=== PATIENT | female | born 1960 | race Caucasian/White ===

== ENCOUNTER 2023-09-28 10:06 | Outpatient (CLI) | payer BC, SELFPAY ==
[2023-09-28 18:10] LABS: Hematocrit 47.3 % (37.0-47.0); Hemoglobin 15.1 g/dL (12.0-15.0); Mean Corpuscular HGB Conc 31.9 g/dl (32-36); Mean Corpuscular Hemoglobin 28.2 pg (26-34); Mean Corpuscular Volume 88.4 fl (80-100); Platelet Count Result 238 k/mm3 (150-375); Red Blood Count 5.35 M/mm3 (4.2-5.4); Red Cell Distribution Width 14.1 % (11.5-14.5); White Blood Count 6.3 K/mm3 (4.5-10.0)
[2023-09-28 18:23] LABS: Alanine Aminotransferase 28 U/L (6-35); Albumin Level 4.6 g/dL (3.5-5.1); Alkaline Phosphatase 88 U/L (38-126); Anion Gap 4 mmol/L (4-12); Aspartate Amino Transferase 66 U/L (14-36); Bilirubin,Total 1.3 mg/dL (0.2-1.3); Blood Urea Nitrogen 8 mg/dL (7-17); Calcium 10.2 mg/dL (8.4-10.2); Carbon Dioxide 31 mmol/L (22-30); Chloride 102 mmol/L (98-107); Cholesterol 171 mg/dL (0-200); Estimated Glomerular Filt Rate > 60; Glucose 97 mg/dL (65-110); HDL Direct 59 mg/dL; Potassium 4.1 mmol/L (3.4-5.0); Sodium 137 mmol/L (137-145); Triglycerides 157 mg/dL (<150)
[2023-09-28 18:43] LABS: LDL Cholesterol Direct 83 mg/dL
[2023-09-28 19:37] LABS: Folic Acid > 20.0 ng/mL (2.76->20)
[2023-09-28 20:38] LABS: Vitamin D 25 Hydroxy 35.1 ng/mL
[2023-09-29 00:17] LABS: Hemoglobin A1C 5.3 % (<5.7)
== END 2023-09-28 10:07 | disposition home or self-care (01) ==
LOC: ANHBWCLAB 10:08
PROVIDERS: PCP Nurse Practitioner Adult Health; Visit Provider Nurse Practitioner Adult Health
DX: E55.9 Vitamin D deficiency, unspecified (principal); R53.83 Other fatigue; E66.9 Obesity, unspecified; Z13.9 Encounter for screening, unspecified; H91.90 Unspecified hearing loss, unspecified ear
CPT/HCPCS: 36415; 80053; 80061; 82306; 82607; 82746; 83036; 84443; 85027

== ENCOUNTER 2024-04-01 11:31 | Outpatient (CLI) | payer BC, SELFPAY ==
[2024-04-01 18:56] LABS: Alanine Aminotransferase 25 U/L (6-35); Albumin Level 4.3 g/dL (3.5-5.1); Alkaline Phosphatase 74 U/L (38-126); Anion Gap 8 mmol/L (4-12); Aspartate Amino Transferase 50 U/L (14-36); Blood Urea Nitrogen 13 mg/dL (7-17); Carbon Dioxide 30 mmol/L (22-30); Chloride 102 mmol/L (98-107); Cholesterol 176 mg/dL (0-200); Estimated Glomerular Filt Rate > 60; Glucose 91 mg/dL (65-110); HDL Direct 61 mg/dL; Potassium 3.9 mmol/L (3.4-5.0); Sodium 140 mmol/L (137-145); Triglycerides 147 mg/dL (<150)
[2024-04-01 19:06] LABS: LDL Cholesterol Direct 72 mg/dL
[2024-04-01 22:00] LABS: Vitamin D 25 Hydroxy 42.2 ng/mL
== END 2024-04-01 11:32 | disposition home or self-care (01) ==
PROVIDERS: PCP Nurse Practitioner Adult Health; Visit Provider Nurse Practitioner Adult Health
DX: E78.5 Hyperlipidemia, unspecified (principal); E55.9 Vitamin D deficiency, unspecified
CPT/HCPCS: 36415; 80053; 80061; 82306

== ENCOUNTER 2024-12-03 10:23 | Outpatient (CLI) | payer BC, SELFPAY ==
--- NOTE | ~2024-12-03 | MM_ITS ---
EXAMINATION: MM screening rosalia BI w víctor HISTORY: Screening TECHNIQUE: Craniocaudal and mediolateral oblique 3-D tomosynthesis images were obtained and synthetic 2-D images were generated. CAD analysis was submitted and interpreted. COMPARISON: No prior mammogram is available for comparison at this institution. BREAST PARENCHYMAL COMPOSITION: Not dense: There are scattered areas of fibroglandular density. FINDINGS: There is a focal asymmetry in the upper inner quadrant of the left breast, anterior third. There is no mammographic evidence for malignancy in the right breast. IMPRESSION: 1. Left breast asymmetry. 2. Recommend comparison to outside mammograms. BI-RADS Category 0: Incomplete: Needs additional imaging evaluation. Reviewed, dictated and finalized at location B.
--- OUTSIDE RECORDS SUMMARY | 2024-12-03 11:27 | XMS_ITS | Continuity of Care Document ---
Author Organization [facility] Address [address] [place] [address] Phone Care Team Providers Care Map Clerk Name Role Phone Kahlil Null Unavailable Unavailable Advance Directives Directive Yes / No Effective Date File Name No Information Encounters Encounter Description Practice Location Reason(s) For Visit Diagnoses Date Provider Providers Copied on Encounter [facility], [id number] [place] [address] [address], [place], [place], [id number], [place] tel:[phone] SEC [facility] No Information Aug-0 6-200 1 Chaka Edandrea. [address] , [address], [place], [address], [place]. tel:[phone] Family History Family Member Type Diagnosis Age At Onset No Information Payers Payer name Insurance type Covered democrat ID Authoriza tion(s) No Information Social History Type Description Quantity Date Captured Comments Sex Female Smoking Status No Information Chief Complaint And Reason For Visit No Information Reason For Referral Reason For Referral No Information History Of Present Illness Encounter Date Complaint History Of Prese nt Illness No Information Functional Status Date Functional Assessmen t No Information Instructions Date Instruction Additional Infor mation No Information Assessments Type Assessment Date No Information Patient Care Teams Name Effective Dates (start - stop) Status Members No Information
--- OUTSIDE RECORDS SUMMARY | 2024-12-03 11:27 | XMS_ITS | Clinical Summary ---
Author Organization [facility] Address [facility] [place] [address] Care Team Providers Care Vacuum Tank Tender Name Role Phone Jovanny Cobos MD Unavailable Nancy Bassett NP Primary Care Provider [phone] Yris Gamino Unavailable [phone] Allergies No known active allergies Medications metoprolol XL (TOPROL-XL) 50 mg 24 hr tablet Take 1 tablet (50 mg total) by mouth daily Active dextroamphetamin e-amphetamine XR (ADDERALL XR) 30 mg 24 hr capsule Take 1 capsule (30 mg total) by mouth every morning Active FLUoxetine (PROzac) 20 mg capsule Take 1 capsule (20 mg total) by mouth daily Active fluticasone propion-salmeter oL (ADVAIR DISKUS) 250-50 mcg/dose diskus inhaler Inhale 1 puff daily Rinse mouth with water after use. Do not swallow. Active fluticasone propionate (FLONASE) 50 mcg/actuation nasal spray Administer 1 spray into each nostril daily Active albuterol HFA (PROVENTIL HFA,VENTOLIN HFA,PROAIR HFA) 90 mcg/actuation inhaler Inhale 2 puffs as needed 3 Active cetirizine (ZyrTEC) 10 mg chewable tablet Take 1 tablet (10 mg total) by mouth daily Active calcium carbonate-vitami n D3 1,500 mg (600 mg elemental)-1,000 unit capsule Take 1 capsule by mouth daily Active multivitamin tabletIndication s:Vitamin Deficiency Prevention Take 1 tablet by mouth daily Active UNABLE TO FIND Take 1 each by mouth daily Med Name: SAMe (Tosylate Disulfate) 400mg Active menthol (Gold Milton Original Strength) 0.15 % powder Apply 1 Application topically daily Active cyclobenzaprine (FLEXERIL) 10 mg tabletIndication s:Aftercare following left knee joint replacement surgery Take 1 tablet (10 mg total) by mouth every 8 (eight) hours as needed for muscle spasms 30 tablet 4 Active lidocaine 5 % creamIndications :S/P total knee arthroplasty, left,Nerve pain Apply cream to left knee twice daily avoiding incision for pain 28 g 4 Active cephalexin (KEFLEX) 500 mg capsuleIndicatio ns:Prophylaxis, Medical Take 1 capsule twice daily the day before, day of and day after all dental visits 6 capsule 2 5 Active Active Problems Problem Noted Date Diagnosed Date Arthritis of left knee 11/21/2023 Aftercare following left knee joint replacement surgery 11/21/2023 Primary osteoarthritis of both knees 01/09/2023 Primary osteoarthritis of left knee 10/22/2018 Assessment & Plan (10/22/2018 3:28 PM CDT): Patient has responded well to injection therapies in the past see procedure note Surgical History Surgery Date Site/Laterality Comments EYE SURGERY 06/26/1969 - 06/25/1970 Bilateral crossed eye OOPHERECTOMY 06/26/1989 - 06/25/1990 Left FOOT FRACTURE SURGERY 06/26/2019 - 06/25/2020 Right Taty Franc fx CARDIAC ELECTROPHYSIOLOGY MA PPING AND ABLATION 06/26/2016 - 06/25/2017 N/A A fib and SVT Medical History Medical History Date Comments Atrial fibrillation (HCC) SVT (supraventricular tachycardia) Elevated cholesterol Depression GERD (gastroesophageal reflux disease) ADHD (attention deficit hype ractivity disorder) Asthma Hiatal hernia HL (hearing loss) Bilateral - he aring aids, better in left Family History Medical History Relation Name Comments Arthritis Other Cancer Other Heart disease Other Hypertension Other Relation Name Status Comments Other Social History Tobacco Use Types Packs/Day Years Used Date Smoking Tobacco: Never Tobacco Cessation:Counseling Given: Not Answered [facility] Utilities Answer Date Recorded In the past 12 months has th e electric, gas, oil, or water company threatened to shut off services in your home? No 11/22/2023 Social Connection and Isolat ion Panel [NHANES] Answer Date Recorded In a typical week, how many times do you talk on the phone with family, friends, or neighbors? More than three times a week 11/22/2023 How often do you get togethe r with friends or relatives? More than three times a week 11/22/2023 How often do you attend chur ch or zoroastrianism services? More than 4 times per year 11/22/2023 Do you belong to any clubs o r organizations such as religious groups, unions, fraternal or athletic groups, or school groups? No 11/22/2023 How often do you attend meet ings of the clubs or organizations you belong to? Never 11/22/2023 Are you , , di vorced, , never , or living with a partner? 11/22/2023 AUDIT-C Answer Date Recorded Q1: How often do you have a drink containing alcohol? Never 11/07/2023 Q2: How many drinks containi ng alcohol do you have on a typical day when you are drinking? Patient does not drink Q3: How often do you have si x or more drinks on one occasion? Never 11/07/2023 Overall Financial Resource Strain (CARDIA) Answe r Date Recorded How hard is it for you to pa y for the very basics like food, housing, medical care, and heating? Not hard at all 11/22/2023 Hunger Vital Sign Answer Date Recorded Within the past 12 months, y ou worried that your food would run out before you got the money to buy more. Never true 11/22/19 24 Within the past 12 months, t he food you bought just didn't last and you didn't have money to get more. Never true 11/22/2023 PRAPARE - Transportation Answer Date Re corded In the past 12 months, has l ack of transportation kept you from medical appointments or from getting medications? No 10/25 In the past 12 months, has l ack of transportation kept you from meetings, work, or from getting things needed for daily living? No 11/22/2023 Housing Stability Vital Sign Answer Marquis e Recorded In the last 12 months, was t here a time when you were not able to pay the mortgage or rent on time? No 11/22/2023 In the past 12 months, how m any times have you moved where you were living? 1 11/22/2023 At any time in the past 12 m [facility], were you homeless or living in a nursing home (including now)? No 11/22/2023 Personal Safety Answer Date Recorded Have you ever been in or are you currently in a harmful physical or emotional relationship or is someone making you feel afraid or unsafe? 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 Gender Identity Not on file Sexual Orientation Not on file Obstetrics History Last Filed Vital Signs Vital Sign Reading Time Taken Comments Blood Pressure 151/81 11/22/2023 11:15 AM CDT Pulse 66 11/22/2023 11:15 AM CDT Temperature 36.8 C (98.2 F) 11/22/2023 11:15 AM CDT Respiratory Rate 18 11/22/2023 11:15 AM CDT Oxygen Saturation 95% 11/22/2023 11:15 AM CDT Inhaled Oxygen Concentration - - Weight 100.7 kg (222 lb) 01/31/2024 1:37 PM CDT Height 170.2 cm (5' 7.01) 01/31/2024 1:37 PM CD T Body Mass Index 34.76 01/31/2024 1:37 PM CDT Plan of Treatment Health Maintenance Due Date Last Done Comments Breast Cancer Screening-Mammogram 1960 Cervical Cancer Screening 1960 Colon Cancer Screening-Colonoscopy 1960 Depression Screening 1960 Hepatitis C Screening 1960 DTaP/Tdap/Td Vaccine (1 - Tdap) 1971 Hepatitis B Screening 1978 Regular Well Visit/Exam 18-64 1978 Zoster Vaccine (1 of 2) 2010 Influenza Vaccine (Season Ended) 2025 Pneumococcal vaccine <65 Aged Out No longer eligible based on patient's age to complete this topic Medical Devices Implanted Type Area Machine Stone Polisher Apprentice Device Identifier Shelf Expiration Date Model / Serial / Lot Screw Screw Right: Foot [employer] Simplex P Radiopaque Full Dose Cement Bone Sterile 6191-1-010 - [id number] - [id number] Implanted:Qty: 1 on 11/21/2023 by Alcides Mancilla MD at [facility] Left: Knee [employer] 10/23/2025 6191-1-010 / [id number] / [id number] [employer]/Or tho Cmpnt Patellar Std 29mm Resurfacing Round Journey [id number] - [id number] Implanted:Qty: 1 on 11/21/2023 by Alcides Mancilla MD at [facility] Left: Knee [employer] [id number] 07/30/2033 [id number] / / [id number] [employer]Or tho Journey Ii 9mm Bicruciate Stabilized Left 3-4 Insert Articular [id number] - [id number] Implanted:Qty: 1 on 11/21/2023 by Alcides Mancilla MD at [facility] Left: Knee [employer] [id number] 07/03/2033 [id number] / / [id number] [employer]Or tho Journey Bicruciate Stabilize Knee Left 4 Baseplate Tibial [id number] - [id number] Implanted:Qty: 1 on 11/21/2023 by Alcides Mancilla MD at [facility] Left: Knee [employer] [id number] 07/15/2033 [id number] / / [id number] [employer] Journey Ii 67.5x62.7mm Bicruciate Stabilize Knee Left 5 Component [id number] - [id number] Implanted:Qty: 1 on 11/21/2023 by Alcides Mancilla MD at [facility] Left: Knee [employer] [id number] 07/03/2033 [id number] Insurance [employer] O[employer] Advance Directives For more information, please contact: [phone] * Full Code (Latest Code Status on File) Date Activated Date Inactivated Comments 11/21/2023 10:33 AM 11/22/2023 5:56 PM Care Teams Vacuum Tank Tender Relationship Specialty Start Date End Date Nancy Bassett NP [address] [place] [address] [place] [address] PCP - General Nurse Practitioner 10/13/23 Jovanny Cobos MD [address] [place] [address] [address] [place] [address] Referring Physician Cardiovascular Disease 10/13/23 Yris Gamino PA [address] [place] [id number] Physician Breaking Machine Operator Orthopedic Surgery 11/22/23
--- OUTSIDE RECORDS SUMMARY | 2024-12-03 11:27 | XMS_ITS | Clinical Summary ---
Author Organization [facility] Address [address] [place] [address] Phone Care Team Providers Care Fork Truck Driver Name Role Phone Nancy Bassett APRN Primary Care Provider [phone] Allergies No known active allergies Medications ALPRAZolam (XANAX) 0.25 MG TabletIndications:A nxiety Take 0.25 mg by mouth as needed for Anxiety. rx [id number] Indications: Feeling Anxious Active atorvastatin (LIPITOR) 40 MG TabletIndications:H yperlipidemia Take 40 mg by mouth daily. [id number] Indications: High Amount of Fats in the Blood Active ondansetron (ZOFRAN) 4 MG TabletIndications:N ausea and Vomiting Take 4 mg by mouth every 8 hours as needed for Nausea - 1st line. rx [id number] Indications: Nausea and Vomiting Active Metoprolol Succinate 50 MG Capsule ER 24 Hour SprinkleIndications :Hypertension Take 50 mg by mouth daily. rx [id number] Indications: High Blood Pressure Disorder Active Amphetamine ER 20 MG Tablet Chewable Extended Release Take 20 mg by mouth daily (with breakfast). RX [id number] Active FLUoxetine (PROzac) 20 MG CapsuleIndications: Depression Take 20 mg by mouth daily. rx [id number] Indications: Depression Active HYDROcodone-acetami nophen (NORCO) 5-325 MG Tablet Take 1 Tablet by mouth every 4 hours as needed for Mild or more severe pain. Take 1 to 2 tabs by mouth every 4 hours as needed for pain RX [id number] Active omeprazole (PriLOSEC) 40 MG CAPSULE DELAYED RELEASEIndications: Symptomatic Gastroesophageal Reflux Disease (Inactive) Take 40 mg by mouth daily. rx [id number] Indications: Gastroesophageal Reflux Disease with Current Symptoms Active apixaban (ELIQUIS) 2.5 MG Tablet Take 2.5 mg by mouth 2 times daily. take 1 tab by mouth twice daiy for 28 doses rx [id number] Active albuterol 108 (90 Base) MCG/ACT Aerosol SolutionIndications :Cough /wheeze take 2 Puffs by inhalation every 4 hours as needed for Cough or Wheezing. Indications: Cough /wheeze Active Fluticasone Propionate (Xhance) 93 MCG/ACT Exhaler SuspensionIndicatio ns:Rhinosinusitis 2 Sprays by Nasal route daily. Indications: Inflammation of the Sinuses and the Nose Active fluticasone-salmete rol (ADVAIR) 250-50 MCG/ACT AEROSOL POWDER, BREATH ACTIVATEDIndication s:Chronic Obstructive Pulmonary Disease take 1 Puff by inhalation daily. Indications: Chronic Obstructive Lung Disease Active cyclobenzaprine (FLEXERIL) 10 MG TabletIndications:M uscle Spasm Take 10 mg by mouth every 8 hours as needed for Muscle spasms. rx [id number] Indications: Muscle Spasm Active traMADol (ULTRAM) 50 MG TabletIndications:P ain Take 50 mg by mouth every 6 hours as needed for Mild or more severe pain. rx [id number] Indications: Pain Active Social History Tobacco Use Types Packs/Day Years Used Date Smoking Tobacco: Never Assessed Comments Unknown Sex and Gender Information Value Date Recorded Sex Assigned at Not on file Legal Sex Female 12:31 PM CDT Gender Identity Not on file Sexual Orientation Not on file Last Filed Vital Signs Vital Sign Reading Time Taken Comments Blood Pressure 110/78 12/06/2023 1:07 PM CDT Pulse 87 12/06/2023 1:07 PM CDT Temperature 36.5 C (97.7 F) 12/06/2023 1:07 PM CDT Respiratory Rate 17 12/06/2023 1:07 PM CDT Oxygen Saturation 98% 12/06/2023 1:07 PM CDT Inhaled Oxygen Concentration - - Weight 100.7 kg (222 lb) 11/23/2023 1:30 PM CDT Height 170.2 cm (5' 7) 11/23/2023 1:30 PM CDT Body Mass Index 34.77 11/23/2023 1:30 PM CDT Plan of Treatment Not on file Insurance [facility] [[email or web address]] Advance Directives * Full Code (Latest Code Status on File) Date Activated Date Inactivated Comments 12/01/2023 2:01 PM Care Teams Fork Truck Driver Relationship Specialty Start Date End Date Nancy Bassett APRN PCP - General Advanced Practice Nurse 11/22/23
--- OUTSIDE RECORDS SUMMARY | 2024-12-03 11:27 | XMS_ITS | Encounter Summary ---
Author Organization [facility] Address [address] [place] [address] Phone Care Team Providers Care Pecan Picker Name Role Phone Nancy Bassett APRN Primary Care Provider [phone] Reason for Visit * Reason Onset Date Comments Medication Management 12/06/2023 Encounter Details Date Type Department Care Team (Late st Contact Info) Description 12/06/2023 Telephone [facility] [address] [place] [address] Lexy Harrell, RN [place] Medication Management Social History Tobacco Use Types Packs/Day Years Used Date Smoking Tobacco: Never Assessed Comments Unknown Sex and Gender Information Value Date Recorded Sex Assigned at Not on file Legal Sex Female 12:31 PM CDT Gender Identity Not on file Sexual Orientation Not on file documented as of this encounter Plan of Treatment Not on file documented as of this encounter Visit Diagnoses Not on filedocumented in this encounter Care Teams Pecan Picker Relationship Specialty Start Date End Date Nancy Bassett APRN PCP - General Advanced Practice Nurse 11/22/23 documented as of this encounter
--- OUTSIDE RECORDS SUMMARY | 2024-12-03 11:27 | XMS_ITS | Patient Health Record ---
Author Organization [facility] Address [address] [place] [address] Care Team Providers Care Fly Fishing Guide Name Role Phone Nancy Bassett APRN Primary Care Provider Unava ilfelipe Nelson Mock Unavailable [phone] Allergies No Known Allergies Results Component Value Reference Range Notes DRUG MONITOR,AMPHETAMINE, QN , URINE ([id number]) Reviewed date:05/01/2024 03:06:35 PM Interpretation: Performing Lab:CB, [facility] [address], [place] [id number] Jimmy Santoro Notes/Report: FASTING: NO Amphetamine TNP TEST NOT PERFORMED An identification discrepancy exists between the requisition and the specimen. DRUG MONITOR, MARIJUANA META B, QN, URINE ([id number]) Reviewed date:05/01/2024 03:06:19 PM Interpretation: Performing Lab:CB, [facility] [id number], [place] [id number] Jimmy Santoro Notes/Report: FASTING: NO Marijuana Metabolite TNP TEST NOT PERFORMED An identification discrepancy exists between the requisition and the specimen. DRUG MONITOR, OPIATES EXPAND ED, QN, URINE ([id number]) Reviewed date:05/01/2024 03:05:59 PM Interpretation: Performing Lab:CB, [facility] [id number], [place] [id number] Jimmy Santoro, Director - [id number] [facility] Notes/Report: FASTING: NO Codeine TNP TEST NOT PERFORMED An identification discrepancy exists between the requisition and the specimen. Notes and Comments This drug testing is for medical treatment only. Analysis was performed as non-forensic testing and these results should be used only by healthcare providers to render diagnosis or treatment, or to monitor progress of medical conditions. Healthcare Providers needing Interpretation assistance, please contact us at [phone] M-F, 8am to 10pm EST DRUG MONITOR, BUP AND NALOXO NE,QN,URINE ([id number]) Reviewed date:05/01/2024 03:06:30 PM Interpretation: Performing Lab:KIMO, [facility] [address], [place] [id number] Jimmy Santoro Notes/Report: FASTING: NO Buprenorphine TNP TEST NOT PERFORMED An identification discrepancy exists between the requisition and the specimen. DRUG MONITOR, MDMA/MDA, QN, URINE ([id number]) Reviewed date:05/01/2024 03:06:13 PM Interpretation: Performing Lab:K[facility] [address], [place] [id number] Jimmy Santoro Notes/Report: FASTING: NO MDA TNP TEST NOT PERFORMED An identification discrepancy exists between the requisition and the specimen. DRUG MONITOR, COCAINE METAB, QN, URINE ([id number]) Reviewed date:05/01/2024 03:06:25 PM Interpretation: Performing Lab:KIMO [facility] [address], [place] [id number] Jimmy Santoro Notes/Report: FASTING: NO Benzoylecgonine TNP TEST NOT PERFORMED An identification discrepancy exists between the requisition and the specimen. TEST IN QUESTION- MISLABELED NAME ([id number]) Reviewed date:05/01/2024 03:06:40 PM Interpretation: Performing Lab:ANDREE, [id number], [id number] Charity Gongora MD Notes/Report: FASTING: NO MESSAGE: The labeling of the requisition and/or specimen(s) is in question. SPECIMEN TYPE RECEIVED: URINE CUP TEST ORDERED ON REQ: [id number] DM AMPHETAMINES QN U [id number] DM BUP AND NAL QN, U [id number]- DM COCAINE MET QN U [id number]- DM MARIJUANA M QN U [id number] DM MDMA/MDA,QN,U [id number]- DM OPI EXPANDED QN U NAME ON REQUISITION: SHIRA IBRAHIM DATE RECEIVED: 03/04/2024 To prevent further delays in testing please contact us immediately, please call [phone] ([phone]). TEST IN QUESTION- [facility] ([id number]) Reviewed date:05/01/2024 03:06:45 PM Interpretation: Performing Lab:[id number], [id number] Charity Gongora MD Notes/Report: FASTING: NO QUESTION/PROBLEM: The following date of service/collection is questionable. QUESTION: DOC: 02/12/2024 @ 11:00AM. CONTACT: COMMENT REQUESTED INFORMATION AUTHORIZED SIGNATURE TO PREVENT FURTHER DELAYS IN TESTING, PLEASE COMPLETE INFORMATION ABOVE AND FAX TO [phone] TO RESOLVE THIS ORDER. Reason For Referral No Information Medications Medication SIG (Take, Route, Frequency, Duration) Notes Start Date End Date Status FLUoxetine HCl 20 MG Oral 10/17/2023 Active Omeprazole 40 MG Oral 10/17/2023 Ac tive Sulfamethoxazole-Trim ethoprim 800-160 MG Oral 10/17/2023 Active Montelukast Sodium 10 MG Oral 10/17/2023 Active ProAir HFA 108 (90 Base) MCG/ACT Inhalation 10/17/2023 Active Metoprolol Succinate *Pick stren gth-form from [facility] for eRX* 10/17/2023 Active Atorvastatin Calcium 40 MG Oral 10/17/2023 Active Metoprolol Succinate ER 50 MG Oral 10/17/2023 Active Fluticasone Propionate Diskus 50 MCG/ACT Inhalation *[facility]* 10/17/2023 Active BREYNA 160 MCG-4.5 MCG/ACTUATION HFA AEROSOL INHALER *Reorder from [facility] for eRx and Interaction Alerts* 10/17/2023 Active Meloxicam 15 MG Oral 10/17/2023 Act giselle Nystatin 390929 UNIT/ML Mouth/Throat 10/17/2023 Active FLUTICASONE 250 MCG-SALMETEROL 50 MCG/DOSE BLISTR POWDR FOR INHALATION *Reorder from [facility] for eRx and Interaction Alerts* 10/17/2023 Active ALPRAZolam 0.25 MG 1 tablet Oral Twice a day for 30 days As needed 08/07/2024 Active Amphetamine-Dextroamp het ER 20 MG 1 capsule every morning Oral Once a day for 30 days 11/01/2024 Active Immunizations Vaccine Route Administration Date Status Comme nts Tdap Unknown 10/12/2005 Administered Tdap Unknown 07/27/2013 Administered Pfizer [employer] Acunova Covid-19 Vac cine 2nd dose Unknown 10/16/2020 Administered Pfizer [employer]iontech Covid-19 Vac cine 2nd dose Unknown 11/09/2020 Administered Novel [id number]-[id number], preservative free Unknown 04/12/2016 Administered Novel [id number]-D8V8-31, preservative free Unknown 07/18/2019 Administered Influenza, seasonal, injecta ble, preservative free, 3 yrs and above Unknown 02/24/2014 Administered Influenza, seasonal, injecta ble, preservative free, 3 yrs and above Unknown 03/21/2014 Administered Influenza virus vaccine, quadrivalent (IIV4), split virus, 0.25 mL dosage Unknown 03/19/2015 Administered Social History Tobacco Use: Social History Observation Description Date Details (start date - stop date) Never Smoker NA - NA Sex Assigned At : Social History Observation Description Sex Assigned At Female Tobacco Control (Standard) Question Answer Notes Tobacco use: Nonsmoker Problems Problem Type SNOMED Code ICD Code Onset Dates Problem Status W/U Status Risk Notes Problem Major depression, single episode, in complete remission (90264237) Major depressive disorder, single episode, in full remission (F32.5) Active confirmed Problem Generalized anxiety disorder (18135925) Generalized anxiety disorder (F41.1) Active confirmed Problem Attention deficit hyperactivity disorder, predominantly inattentive type (92290369) Attention-deficit hyperactivity disorder, predominantly inattentive type (F90.0) Active confirmed Problem Attention deficit hyperactivity disorder (499488237) Attention-deficit hyperactivity disorder, unspecified type (F90.9) Active confirmed Vital Signs Heart Rate 65 /min 10/14/2024 Height-cm 170.18 cm 10/14/2024 Blood pressure diastolic 78 mm Hg 10/14/2024 Weight-kg 98.43 kg 10/14/2024 Height 67.00 in 10/14/2024 Blood pressure systolic 134 mm Hg 10/14/2024 Weight 217 lbs 10/14/2024 BMI 33.98 kg/m2 10/14/2024 Encounters Encounter Location Date Provider Diagnosis [facility] [address] [facility] [address] [facility] [address] [place] [address] 02/12/2024 Nelson Mock Attention-deficit hyperactivity disorder, predominantly inattentive type F90.0 ; Generalized anxiety disorder F41.1 and Major depressive disorder, single episode, in full remission F32.5 [facility] [address] [facility] [address] [facility] [address] [place] [address] 06/17/2024 Nelson Mock Attention-deficit hyperactivity disorder, predominantly inattentive type F90.0 ; Generalized anxiety disorder F41.1 and Major depressive disorder, single episode, in full remission F32.5 [facility] [address] [facility] [address] [facility] [address] [place] [address] 10/14/2024 Nelsonpaula Stacyoza Attention-deficit hyperactivity disorder, predominantly inattentive type F90.0 ; Generalized anxiety disorder F41.1 ; Major depressive disorder, single episode, in full remission F32.5 ; Encounter for screening for depression Z13.31 and Encounter for screening for cardiovascular disorders Z13.6 [facility], [facility] [address] [place] [address] 01/31/2024 Nelson Mock Attention-deficit hyperactivity disorder, predominantly inattentive type F90.0 [facility], [facility] [address] [place] [address] 03/20/2024 Nelson Mock Attention-deficit hyperactivity disorder, unspecified type F90.9 [facility], [facility] [address] [place] [address] 04/08/2024 Nelson Mock [facility], [facility] [address] [place] [address] 04/09/2024 Nelson Mock [facility], [facility] [address] [place] [address] 04/09/2024 Nelson Mock Attention-deficit hyperactivity disorder, unspecified type F90.9 [facility], [facility] [address] [place] [address] 05/15/2024 Nelson Mock Attention-deficit hyperactivity disorder, unspecified type F90.9 [facility], [facility] [address] [place] [address] 08/07/2024 Nelson Mock [facility], [facility] [address] [place] [address] 08/09/2024 Nelson Mock [facility], [facility] [address] [place] [address] 08/09/2024 Nelson Mock Attention-deficit hyperactivity disorder, predominantly inattentive type F90.0 [facility], [facility] [address] [place] [address] 09/30/2024 Nelson Mock Attention-deficit hyperactivity disorder, predominantly inattentive type F90.0 [facility], [facility] [address] [place] [address] 09/30/2024 Nelson Mock Attention-deficit hyperactivity disorder, predominantly inattentive type F90.0 [facility], [facility] [address] [place] [address] 11/01/2024 Nelson Mock Attention-deficit hyperactivity disorder, predominantly inattentive type F90.0 Assessments Encounter Date Diagnosis (ICD Code) Assessment Notes Treatment Notes Treatment Clinical Notes Section Notes 01/31/2024 Attention-defici t hyperactivity disorder, predominantly inattentive type (ICD-10 - F90.0) 02/12/2024 Generalized anxiety disorder (ICD-10 - F41.1) cont fluoxetine 20mg daily - prescribed by pcp alprazolam 0.5mg prn- prescribed by pcp 1. ADHD: - Patient reports not taking Adderall XR 20 mg for a couple of weeks due to unavailability at the pharmacy. Patient experienced increased ADHD symptoms during this time. Plan: - Patient has reordered Adderall XR 20 mg and will resume taking it as prescribed. - Follow up in four months to assess the effectiveness and tolerability of the medication. 2. Insomnia: - Patient reports difficulty falling asleep, which may be exacerbated by Adderall XR use. Plan: - Encourage the patient to maintain good sleep hygiene, including avoiding naps during the day. - Monitor sleep patterns during the follow-up visit in four months. 3. Sadness: - Patient reports occasional sadness but denies ongoing depression. Plan: - Encourage the patient to engage in activities and social interactions to help alleviate sadness. - Monitor mood during the follow-up visit in four months. 4. 5. Medication review: - Patient is currently taking metoprolol, meloxicam, atorvastatin 40 mg, alprazolam (as needed), and fluoxetine 20 mg. Plan: - Update medication list to reflect the change in atorvastatin dosage. - Continue monitoring medication effectiveness and side effects during the follow-up visit in four months. 02/12/2024 Attention-defici t hyperactivity disorder, predominantly inattentive type (ICD-10 - F90.0) cont Adderall xr 20mg Coadministratio n of proton pump inhibitors may decrease the time to peak plasma concentration and pharmacologic effects of extended release Amphetamine-Dex troamphet ER Oral Capsule Extended Release 24 Hour 20 MG (ie, Adderall XR). This interaction does not apply to immediate-relea se amphetamine/dex troamphetamine preparations. 1. ADHD: - Patient reports not taking Adderall XR 20 mg for a couple of weeks due to unavailability at the pharmacy. Patient experienced increased ADHD symptoms during this time. Plan: - Patient has reordered Adderall XR 20 mg and will resume taking it as prescribed. - Follow up in four months to assess the effectiveness and tolerability of the medication. 2. Insomnia: - Patient reports difficulty falling asleep, which may be exacerbated by Adderall XR use. Plan: - Encourage the patient to maintain good sleep hygiene, including avoiding naps during the day. - Monitor sleep patterns during the follow-up visit in four months. 3. Sadness: - Patient reports occasional sadness but denies ongoing depression. Plan: - Encourage the patient to engage in activities and social interactions to help alleviate sadness. - Monitor mood during the follow-up visit in four months. 4. 5. Medication review: - Patient is currently taking metoprolol, meloxicam, atorvastatin 40 mg, alprazolam (as needed), and fluoxetine 20 mg. Plan: - Update medication list to reflect the change in atorvastatin dosage. - Continue monitoring medication effectiveness and side effects during the follow-up visit in four months. 04/09/2024 Attention-defici t hyperactivity disorder, unspecified type (ICD-10 - F90.9) 05/15/2024 Attention-defici t hyperactivity disorder, unspecified type (ICD-10 - F90.9) 06/17/2024 Attention-defici t hyperactivity disorder, predominantly inattentive type (ICD-10 - F90.0) cont Adderall xr 20mg Coadministratio n of proton pump inhibitors may decrease the time to peak plasma concentration and pharmacologic effects of extended release Amphetamine-Dex troamphet ER Oral Capsule Extended Release 24 Hour 20 MG (ie, Adderall XR). This interaction does not apply to immediate-relea se amphetamine/dex troamphetamine preparations. 1. ADHD: - Patient reports consistent use of Adderall XR 20 mg and finds it beneficial. No significant side effects reported. - Plan: Continue Adderall XR 20 mg daily. Refill prescription for 4 months and send to [facility] pharmacy. 2. Insomnia: - Patient reports no significant issues with sleep, able to nap in the afternoon and sleep at night. - Plan: Continue monitoring sleep patterns and address any concerns in future visits. 3. Anxiety: - Patient reports minimal anxiety and feels able to manage it effectively. - Plan: Continue monitoring anxiety levels and address any concerns in future visits. 4. Seasonal depression: - Patient reports occasional seasonal depression but is able to manage it without intervention. - Plan: Continue monitoring mood and address any concerns in future visits. 5. Fluoxetine use: - Patient is currently on Fluoxetine 20 mg (Prozac) and reports a temporary period of feeling blah but has since returned to normal mood. - Plan: Continue Fluoxetine 20 mg daily. Monitor mood and consider adjusting medication if symptoms recur or worsen. 6. Dental surgery: - Patient reports upcoming dental surgery for teeth removal and implants in June or July. - Plan: Encourage patient to follow up with dental care and inform the provider of any changes in medical status related to the surgery. 7. Hearing and tinnitus: - Patient reports worsening hearing and ringing in the ears. - Plan: Recommend patient to consider evaluation by an engineering supplies sales or ENT specialist for further assessment and management. 08/09/2024 Attention-defici t hyperactivity disorder, predominantly inattentive type (ICD-10 - F90.0) 09/30/2024 Attention-defici t hyperactivity disorder, predominantly inattentive type (ICD-10 - F90.0) 09/30/2024 Attention-defici t hyperactivity disorder, predominantly inattentive type (ICD-10 - F90.0) 10/14/2024 Attention-defici t hyperactivity disorder, predominantly inattentive type (ICD-10 - F90.0) cont Adderall xr 20mg Coadministratio n of proton pump inhibitors may decrease the time to peak plasma concentration and pharmacologic effects of extended release Amphetamine-Dex troamphet ER Oral Capsule Extended Release 24 Hour 20 MG (ie, Adderall XR). This interaction does not apply to immediate-relea se amphetamine/dex troamphetamine preparations. 11/01/2024 Attention-defici t hyperactivity disorder, predominantly inattentive type (ICD-10 - F90.0) 06/17/2024 Generalized anxiety disorder (ICD-10 - F41.1) cont fluoxetine 20mg daily - prescribed by pcp alprazolam 0.5mg prn- prescribed by pcp 1. ADHD: - Patient reports consistent use of Adderall XR 20 mg and finds it beneficial. No significant side effects reported. - Plan: Continue Adderall XR 20 mg daily. Refill prescription for 4 months and send to [facility] pharmacy. 2. Insomnia: - Patient reports no significant issues with sleep, able to nap in the afternoon and sleep at night. - Plan: Continue monitoring sleep patterns and address any concerns in future visits. 3. Anxiety: - Patient reports minimal anxiety and feels able to manage it effectively. - Plan: Continue monitoring anxiety levels and address any concerns in future visits. 4. Seasonal depression: - Patient reports occasional seasonal depression but is able to manage it without intervention. - Plan: Continue monitoring mood and address any concerns in future visits. 5. Fluoxetine use: - Patient is currently on Fluoxetine 20 mg (Prozac) and reports a temporary period of feeling blah but has since returned to normal mood. - Plan: Continue Fluoxetine 20 mg daily. Monitor mood and consider adjusting medication if symptoms recur or worsen. 6. Dental surgery: - Patient reports upcoming dental surgery for teeth removal and implants in June or July. - Plan: Encourage patient to follow up with dental care and inform the provider of any changes in medical status related to the surgery. 7. Hearing and tinnitus: - Patient reports worsening hearing and ringing in the ears. - Plan: Recommend patient to consider evaluation by an engineering supplies sales or ENT specialist for further assessment and management. 10/14/2024 Generalized anxiety disorder (ICD-10 - F41.1) cont fluoxetine 20mg daily - prescribed by pcp alprazolam 0.5mg prn- prescribed by pcp 03/20/2024 Attention-defici t hyperactivity disorder, unspecified type (ICD-10 - F90.9) 02/12/2024 Major depressive disorder, single episode, in full remission (ICD-10 - F32.5) 1. ADHD: - Patient reports not taking Adderall XR 20 mg for a couple of weeks due to unavailability at the pharmacy. Patient experienced increased ADHD symptoms during this time. Plan: - Patient has reordered Adderall XR 20 mg and will resume taking it as prescribed. - Follow up in four months to assess the effectiveness and tolerability of the medication. 2. Insomnia: - Patient reports difficulty falling asleep, which may be exacerbated by Adderall XR use. Plan: - Encourage the patient to maintain good sleep hygiene, including avoiding naps during the day. - Monitor sleep patterns during the follow-up visit in four months. 3. Sadness: - Patient reports occasional sadness but denies ongoing depression. Plan: - Encourage the patient to engage in activities and social interactions to help alleviate sadness. - Monitor mood during the follow-up visit in four months. 4. 5. Medication review: - Patient is currently taking metoprolol, meloxicam, atorvastatin 40 mg, alprazolam (as needed), and fluoxetine 20 mg. Plan: - Update medication list to reflect the change in atorvastatin dosage. - Continue monitoring medication effectiveness and side effects during the follow-up visit in four months. 06/17/2024 Major depressive disorder, single episode, in full remission (ICD-10 - F32.5) 1. ADHD: - Patient reports consistent use of Adderall XR 20 mg and finds it beneficial. No significant side effects reported. - Plan: Continue Adderall XR 20 mg daily. Refill prescription for 4 months and send to [facility] pharmacy. 2. Insomnia: - Patient reports no significant issues with sleep, able to nap in the afternoon and sleep at night. - Plan: Continue monitoring sleep patterns and address any concerns in future visits. 3. Anxiety: - Patient reports minimal anxiety and feels able to manage it effectively. - Plan: Continue monitoring anxiety levels and address any concerns in future visits. 4. Seasonal depression: - Patient reports occasional seasonal depression but is able to manage it without intervention. - Plan: Continue monitoring mood and address any concerns in future visits. 5. Fluoxetine use: - Patient is currently on Fluoxetine 20 mg (Prozac) and reports a temporary period of feeling blah but has since returned to normal mood. - Plan: Continue Fluoxetine 20 mg daily. Monitor mood and consider adjusting medication if symptoms recur or worsen. 6. Dental surgery: - Patient reports upcoming dental surgery for teeth removal and implants in June or July. - Plan: Encourage patient to follow up with dental care and inform the provider of any changes in medical status related to the surgery. 7. Hearing and tinnitus: - Patient reports worsening hearing and ringing in the ears. - Plan: Recommend patient to consider evaluation by an engineering supplies sales or ENT specialist for further assessment and management. 10/14/2024 Major depressive disorder, single episode, in full remission (ICD-10 - F32.5) 10/14/2024 Encounter for screening for depression (ICD-10 - Z13.31) 10/14/2024 Encounter for screening for cardiovascular disorders (ICD-10 - Z13.6) 10/14/2024 Other Shira Ibrahim, a retired individual, presents for follow-up of depression, ADHD, and tinnitus, reporting improved mood with seasonal change and better adherence to ADHD medication. Major Depressive Disorder Assessment: Patient reports improvement in depressive symptoms since the last visit, attributing this to the onset of spring weather. The seasonal pattern of mood improvement suggests a possible seasonal component to the depression. Patient continues to take fluoxetine 20 mg daily as prescribed by their primary care physician, which appears to be effective in managing depressive symptoms. Plan: - Continue fluoxetine 20 mg PO daily as prescribed by primary care physician - Monitor for any changes in mood or return of depressive symptoms Attention Deficit Hyperactivity Disorder (ADHD) Assessment: Patient reports improved adherence to Adderall XR and notes that it seems to be doing its job. This suggests effective management of ADHD symptoms with the current medication regimen. The last Adderall refill was on October 01, indicating regular use. Plan: - Continue Adderall XR at current dose (dose not specified in transcript) - Patient instructed to contact for refill when needed Tinnitus Assessment: Patient reports persistent tinnitus that has worsened since the last visit. This is associated with ongoing hearing issues, which continue to be a concern for the patient. Plan: - Continue to monitor tinnitus symptoms - Consider referral to otolaryngology if symptoms worsen or significantly impact quality of life Anxiety Assessment: Patient denies current anxiety symptoms. Continues to have as-needed alprazolam (Xanax) available, which has not been used frequently. Plan: - Monitor for any increase in anxiety symptoms Sleep Pattern Changes Assessment: Patient reports adequate sleep despite changes in sleep pattern since assisted. Reports feeling rested with approximately 5 hours of sleep per night, which is less than previously required. This change in sleep requirements does not appear to be causing distress or impairment. Plan: - Continue to monitor sleep patterns and quality - Encourage maintaining consistent sleep schedule despite assisted the note is transcribed using speech recognition software. It is a reflection of a visit with the patient. It might have some inaccuracy, including medication names and transcribing errors, though efforts have been made to correct them. Plan Of Treatment No Information Insurance Providers Payer Name Payer Address Payer Phone Subscriber Number Group Number Insured Name Patient Relationship to Insured Coverage Start Date Coverage End Date [facility] [address] [place] [address] [id number] SHIRA IBRAHIM Self - patient is the insured Medical (General) History Medical History History ICD Code Problems: Adult attention deficit hypera ctivity disorder Attention deficit hyperactivity disorder Attention deficit hyperactivity disorder , predominantly inattentive type Generalized anxiety disorder Long-term current use of drug therapy Major depression in full remission , Imported from Highlights: Th e patient has been primarily dealing with osteoarthritis in the left knee. On November 07, 2023, the patient underwent preoperative examination and testing at [facility] under the care of Sofi Correia PT and Molly Akers RN. The patient then underwent left knee joint replacement surgery on November 21, 2023, performed by Alcides Mancilla MD at [facility]. Post-surgery, the patient received aftercare and home visits from various healthcare professionals from [facility] and [facility], including Arpita Shepherd PTA, Hattie Millan PTA, Pilar Sidhu PT, and Sarah Aguiar RN. The patient also had office visits and telephone consultations with Alcides Mancilla MD and Yris Gamino at [facility] for nerve pain and aftercare following the knee surgery. As of the last update on July 16, 2024, the patient was still in contact with Alcides Mancilla MD at [facility] for aftercare following the left knee joint replacement surgery. Surgical History Surgery Date(Month/Year) Other
--- OUTSIDE RECORDS SUMMARY | 2024-12-03 11:27 | XMS_ITS | Encounter Summary ---
Author Organization [facility] Address [address] [place] [address] Phone Care Team Providers Care Hotel Office Manager Name Role Phone Nancy Bassett APRN Primary Care Provider [phone] Reason for Visit * Reason Onset Date Comments Medication Management 12/12/2023 Encounter Details Date Type Department Care Team (Late st Contact Info) Description [facility]/12[facility] [address] [place] [address] Lexy Harrell, RN [place] Medication Management Social History Tobacco Use Types Packs/Day Years Used Date Smoking Tobacco: Never Assessed Comments Unknown Sex and Gender Information Value Date Recorded Sex Assigned at Not on file Legal Sex Female 12:31 PM CDT Gender Identity Not on file Sexual Orientation Not on file documented as of this encounter Miscellaneous Notes * Telephone Encounter - Lexy Harrell, RN - 12/14/2023 11:14 AM CDT Please respond to each line item below. No changes, actions required. Patient admitted to [facility] Home Care on 12/12/23 for therapy. Medication review completed with [facility] [place] therapist on 12/12/23, Patient is symptomatic with discomfort to arm after fracture with surgical repair Please route response to P Clinical Support Triage or call [facility] Home Care [phone] option 4 for a nurse. Response is required within 24 hours to meet regulatory requirements. Thank you documented in this encounter Plan of Treatment Not on file documented as of this encounter Visit Diagnoses Not on filedocumented in this encounter Care Teams Hotel Office Manager Relationship Specialty Start Date End Date Nancy Bassett APRN PCP - General Advanced Practice Nurse 11/22/23 documented as of this encounter
--- OUTSIDE RECORDS SUMMARY | 2024-12-03 11:27 | XMS_ITS | Referral Summary ---
Author Organization [facility] [place] Address [facility] [place] [address] Care Team Providers Care Optical Fabricator Name Role Phone Jovanny Cobos MD Unavailable [phone] Nancy Bassett NP Primary Care Provider [phone] Yris Gamino Unavailable [phone] Allergies No known active allergies Medications metoprolol [...] therapies in the past see procedure note Social History Tobacco Use Types Packs/Day Years Used Date Smoking Tobacco: Never Tobacco Cessation:Counseling Given: Not Answered [facility] Utilities Answer Date Recorded In the past 12 months has [employer] oil, or water [employer] threatened to shut off services in your [...] week 11/22/2023 How often do you attend [facility] or scientology services? More than 4 times per year 11/22/2023 Do you belong to any clubs o r organizations such as congregational groups, unions, fraternal or athletic groups, or [...] any time in the past 12 m [facility], were you homeless or living in a correction (including now)? No 11/22/2023 Personal Safety Answer Date Recorded Have you ever been in or are you currently in a harmful physical or emotional relationship or is someone making you feel afraid or unsafe? 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 Gender Identity Not on file Sexual Orientation [...] 01/31/2024 1:37 PM CDT Plan of Treatment Not on file Medical Devices Implanted Type Area Community Action Worker Device Identifier Shelf Expiration Date Model / Serial / Lot Screw Screw Right: Foot [employer] Simplex P Radiopaque Full Dose Cement Bone Sterile 6191-1-010 - [id number] - [id number] Implanted:Qty: 1 on 11/21/2023 by Alcides Mancilla MD at [facility] Left: Knee [employer] 10/23/2025 6191-1-010 / 6191-1-001 / [id number] [employer]/Or tho Cmpnt Patellar Std 29mm Resurfacing Round Journey [id number] - [id number] Implanted:Qty: 1 on 11/21/2023 by Alcides Mancilla MD at [facility] Left: Knee [employer]o [id number] 07/30/2033 [id number] / / [id number] [employer]/Or tho Journey Ii 9mm Bicruciate Stabilized Left 3-4 Insert Articular [id number] - [id number] Implanted:Qty: 1 on 11/21/2023 by Alcides Mancilla MD at [facility] Left: Knee [employer]o [id number] 07/03/2033 [id number] / / [id number] [employer]Or tho Journey Bicruciate Stabilize Knee Left 4 Baseplate Tibial [id number] - [id number] Implanted:Qty: 1 on 11/21/2023 by Alcides Mancilla MD at [facility] Left: Knee [employer]o [id number] 07/15/2033 [id number] / / [id number] [employer]Or tho Journey Ii 67.5x62.7mm Bicruciate Stabilize Knee Left 5 Component [id number] - [id number] Implanted:Qty: 1 on 11/21/2023 by Alcides Mancilla MD at [facility] Left: Knee [employer] [id number] 07/03/2033 [id number] / / [id number] Insurance WO Funding OOS WO Funding OOS Advance Directives For more information, please contact: [phone] * Full Code (Latest Code Status on File) Date Activated Date Inactivated Comments 11/21/2023 10:33 AM 11/22/2023 5:56 PM Care Teams Optical Fabricator Relationship Specialty Start Date End Date Nancy Bassett NP [facility] [address] PCP - General Nurse Practitioner 10/13/23 Jovanny Cobos MD [address] [place] [address] [address] [place] [id number] Referring Physician Cardiovascular Disease 10/13/23 Yris Gamino PA [address] [facility] [address] [place] [id number] Physician Instrument Adjuster Orthopedic Surgery 11/22/23
== END 2024-12-03 10:24 | disposition home or self-care (01) ==
PROVIDERS: PCP Nurse Practitioner Adult Health; Visit Provider Nurse Practitioner Adult Health
DX: Z12.31 Encounter for screening mammogram for malignant neoplasm of breast (principal); R92.8 Other abnormal and inconclusive findings on diagnostic imaging of breast
CPT/HCPCS: 77063; 77067

== ENCOUNTER 2024-12-30 12:09 | Outpatient (CLI) | payer BC, SELFPAY ==
--- NOTE | ~2024-12-30 | MMUS_ITS ---
EXAMINATION: MM diagnostic rosalia LT w víctor, US breast LT limited HISTORY: Follow-up left breast asymmetry TECHNIQUE: Additional 3-D tomosynthesis images of the left breast were performed and synthetic 2-D im ages were generated. CAD analysis was submitted and interpreted. High resolution Limited left breast ultrasound was performed. COMPARISON: Comparison to multiple prior studies sequentially, with oldest reviewed study dated 12/17. BREAST PARENCHYMAL COMPOSITION: Not dense: There are scattered areas of fibroglandular density. FINDINGS: MAMMOGRAPHIC FINDINGS: The area of asymmetry medially in the left breast is less apparent with spot compression and mediolat eral views, compatible with superimposed fibroglandular tissue. No discrete mass is identified. No silva spicious architectural distortion or clustered calcifications. ULTRASOUND: Limited left breast ultrasound: Normal heterogeneous echotexture without focal solid or cystic mass. IMPRESSION: 1. No evidence for malignancy in the left breast. 2. Routine yearly screening mammogram and regular clinical breast examination are recommended. BI-RADS Category 1: Negative Reviewed, dictated and finalized at location A. IMPRESSION: 1. No evidence for malignancy in the left breast. 2. Routine yearly screening mammogram and regular clinical breast examination a re recommended. BI-RADS Category 1: Negative
--- OUTSIDE RECORDS SUMMARY | 2024-12-30 12:12 | XMS_ITS | Referral Summary ---
Author Organization [facility] [place] Address [facility] [place] [address] Care Team Providers Care Canvas Goods Fabricator Name Role Phone Jovanny Cobos MD Unavailable [phone] Nancy Bassett NP Primary Care Provider [phone] Yris Gmaino Unavailable [phone] Allergies No known active allergies Medications metoprolol [...] Tobacco: Never Tobacco Cessation:Counseling Given: Not Answered [facility] Utilities Answer Date Recorded In the past 12 months has [employer], oil, or water [employer] threatened to shut off services in your [...] week 11/22/2023 How often do you attend [facility] or hindu services? More than 4 times per year 11/22/2023 Do you belong to any clubs o r organizations such as nondenominational groups, unions, fraternal or athletic groups, or [...] any time in the past 12 m [facility], were you homeless or living in a usp (including now)? No 11/22/2023 Personal Safety Answer Date Recorded Have you ever been in or are you currently in a harmful physical or emotional relationship or is someone making you feel afraid or unsafe? 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 Gender Identity Not on file Sexual Orientation [...] on file Medical Devices Implanted Type Area Shipping Associate Device Identifier Shelf Expiration Date Model / Serial / Lot Screw Screw Right: Foot [employer] Simplex P Radiopaque Full Dose Cement Bone Sterile 6191-1-010 - [id number] - [id number] Implanted:Qty: 1 on 11/21/2023 by Alcides Mancilla MD at [facility] Left: Knee [employer] 10/23/2025 6191-1-010 / 6191-1-001 / [id number] [employer] tho Cmpnt Patellar Std 29mm Resurfacing Round Journey [id number] - [id number] Implanted:Qty: 1 on 11/21/2023 by Alcides Mancilla MD at [facility] Left: Knee [employer] [id number] 07/30/2033 [id number] / / [id number] [employer]Or tho Journey Ii 9mm Bicruciate Stabilized Left 3-4 Insert Articular [id number] - [id number] Implanted:Qty: 1 on 11/21/2023 by Alcides Mancilla MD at [facility] Left: Knee [employer] [id number] 07/03/2033 [id number] / / [id number] [employer]Or tho Journey Bicruciate Stabilize Knee Left 4 Baseplate Tibial [id number] - [id number] Implanted:Qty: 1 on 11/21/2023 by Alcides Mancilla MD at [facility] Left: Knee [employer] [id number] 07/15/2033 [id number] / / [id number] [employer]Or tho Journey Ii 67.5x62.7mm Bicruciate Stabilize Knee Left 5 Component [id number] - [id number] Implanted:Qty: 1 on 11/21/2023 by Alcides Mancilla MD at [facility] Left: Knee [employer] [id number] 07/03/2033 [id number] / / [id number] Insurance AOL OOS AOL OOS Advance Directives For more information, please contact: [phone] * Full Code (Latest Code Status on File) Date Activated Date Inactivated Comments 11/21/2023 10:33 AM 11/22/2023 5:56 PM Care Teams Canvas Goods Fabricator Relationship Specialty Start Date End Date Nancy Bassett NP [facility] [place] [address] PCP - General Nurse Practitioner 10/13/23 Jovanny Cobos MD [address] [place] [address] [address] [place] [address] Referring Physician Cardiovascular Disease 10/13/23 Yris Gamino PA [address] [facility] [address] [place] [address] Physician Spiral Winding Machine Helper Orthopedic Surgery 11/22/23
--- OUTSIDE RECORDS SUMMARY | 2024-12-30 12:13 | XMS_ITS | Encounter Summary ---
Author Organization [facility] Address [address] [facility] [place] [address] Phone Care Team Providers Care Second Officer Name Role Phone Nancy Bassett APRN Primary Care Provider [phone] Reason for Visit * Reason Onset Date Comments Medication Management 12/12/2023 Encounter Details Date Type Department Care Team (Late st Contact Info) Description [facility] [address] [place] [address] Lexy Harrell, RN [place] Medication Management Social [...] No changes, actions required. Patient admitted to [facility] Home Care on 12/12/23 for therapy. Medication review completed with [facility] [place] therapist on 12/12/23, Patient is symptomatic with discomfort to arm after fracture with surgical repair Please route response to P Clinical Support Triage or call [facility] Home Care [phone] option 4 for a nurse. Response is required within 24 hours to meet regulatory requirements. Thank you documented in this encounter Plan of Treatment Not on file documented as of this encounter Visit Diagnoses Not on filedocumented in this encounter Care Teams Second Officer Relationship Specialty Start Date End Date Nancy Bassett APRN PCP - General Advanced Practice Nurse 11/22/23 documented as of this encounter
--- OUTSIDE RECORDS SUMMARY | 2024-12-30 12:13 | XMS_ITS | Patient Health Record ---
Author Organization [facility] Address [address] [place] [address] Care Team Providers Care Jacket Changer Name Role Phone Nancy Bassett APRN Primary Care Provider Unava ilfelipe Nelson Mock Unavailable [phone] Allergies No Known Allergies Results Component Value Reference Range Notes DRUG MONITOR,AMPHETAMINE, QN , URINE ([id number]) Reviewed date:05/01/2024 03:06:35 PM Interpretation: Performing Lab:CB, [facility] [address], [place] [id number] Jimmy Santoro Notes/Report: FASTING: NO Amphetamine TNP TEST NOT PERFORMED An identification discrepancy exists between the requisition and the specimen. DRUG MONITOR, MARIJUANA META B, QN, URINE ([id number]) Reviewed date:05/01/2024 03:06:19 PM Interpretation: Performing Lab:CB, [facility] [address], [place] [id number] Jimmy Santoro Notes/Report: FASTING: NO Marijuana Metabolite TNP TEST NOT PERFORMED An identification discrepancy exists between the requisition and the specimen. DRUG MONITOR, OPIATES EXPAND ED, QN, URINE ([id number]) Reviewed date:05/01/2024 03:05:59 PM Interpretation: Performing Lab:CB, [facility] [address], [place] [id number] Jimmy Santoro, Director - [address] [facility] Notes/Report: FASTING: NO Codeine TNP TEST NOT [...] needing Interpretation assistance, please contact us at [phone] ( ) M-F, 8am to 10pm EST DRUG MONITOR, BUP AND NALOXO NE,QN,URINE ([id number]) Reviewed date:05/01/2024 03:06:30 PM Interpretation: Performing Lab:KIMO, [facility] [address], [place] FyspLN[address] Jimmy Santoro Notes/Report: FASTING: NO Buprenorphine TNP TEST NOT PERFORMED An identification discrepancy exists between the requisition and the specimen. DRUG MONITOR, MDMA/MDA, QN, URINE ([id number]) Reviewed date:05/01/2024 03:06:13 PM Interpretation: Performing Lab:[facility] [address], [place] KnkzIS[address] Jimmy Santoro Notes/Report: FASTING: NO MDA TNP TEST NOT PERFORMED An identification discrepancy exists between the requisition and the specimen. DRUG MONITOR, COCAINE METAB, QN, URINE ([id number]) Reviewed date:05/01/2024 03:06:25 PM Interpretation: Performing Lab:[facility] [address], [place] JzleIU[address] Jimmy Santoro Notes/Report: FASTING: NO Benzoylecgonine TNP TEST NOT PERFORMED An identification discrepancy exists between the requisition and the specimen. TEST IN QUESTION- MISLABELED NAME ([id number]) Reviewed date:05/01/2024 03:06:40 PM Interpretation: Performing Lab:ANDREE, [facility], HtxifuRD[address] Charity Gongora MD Notes/Report: FASTING: NO MESSAGE: The labeling of the requisition and/or specimen(s) is in question. SPECIMEN TYPE RECEIVED: URINE CUP TEST ORDERED ON REQ: [id number] DM AMPHETAMINES QN U [id number] DM BUP AND NAL QN, U [id number]- DM COCAINE MET QN U [id number]- DM MARIJUANA M QN U [id number]- DM MDMA/MDA,QN,U [id number]- DM OPI EXPANDED QN U NAME ON REQUISITION: SHIRA IBRAHIM DATE RECEIVED: 03/04/2024 To prevent further delays in testing please contact us immediately, please call [phone] ([phone]). TEST IN QUESTION- [facility] ([id number]) Reviewed date:05/01/2024 03:06:45 PM Interpretation: Performing Lab:[facility], [id number] Charity Gongora MD Notes/Report: FASTING: NO QUESTION/PROBLEM: The following date of service/collection is questionable. QUESTION: DOC: 02/12/2024 @ 11:00AM. CONTACT: COMMENT REQUESTED INFORMATION AUTHORIZED SIGNATURE TO PREVENT FURTHER DELAYS IN TESTING, PLEASE COMPLETE INFORMATION ABOVE AND FAX TO [phone] TO RESOLVE THIS ORDER. Reason For Referral [...] Active Metoprolol Succinate *Pick stren gth-form from [facility] for eRX* 10/17/2023 Active Atorvastatin Calcium 40 MG Oral 10/17/2023 Active Metoprolol Succinate ER 50 MG Oral 10/17/2023 Active Fluticasone Propionate Diskus 50 MCG/ACT Inhalation *Reorder from [facility] for eRx and Interaction Alerts* 10/17/2023 Active BREYNA 160 MCG-4.5 MCG/ACTUATION HFA AEROSOL INHALER *Reorder from [facility] for eRx and Interaction Alerts* 10/17/2023 Active Meloxicam 15 MG Oral 10/17/2023 Act giselle Nystatin 073100 UNIT/ML Mouth/Throat 10/17/2023 Active FLUTICASONE 250 MCG-SALMETEROL 50 MCG/DOSE BLISTR POWDR FOR INHALATION *Reorder from [facility] for eRx and Interaction Alerts* 10/17/2023 Active ALPRAZolam 0.25 MG 1 tablet Oral Twice a day; Duration: 30 days As needed 08/07/2024 Active Amphetamine-Dextroamp het ER 20 MG 1 capsule every morning Oral Once a day; Duration: 30 days 12/24/2024 Active Immunizations Vaccine Route Administration Date Status Comme nts Tdap Unknown 10/12/2005 Administered Tdap Unknown 07/27/2013 Administered Pfizer Biontech Covid-19 Vac cine 2nd dose Unknown 10/16/2020 Administered Pfizer Biontech Covid-19 Vac cine 2nd dose Unknown 11/09/2020 Administered Novel [id number], preservative free Unknown 04/12/2016 Administered Novel [id number]-[id number], preservative free Unknown 07/18/2019 Administered Influenza, seasonal, [...] Major depression, single episode, in complete remission (11986373) Major depressive disorder, single episode, in full remission (F32.5) Active confirmed Problem Generalized anxiety disorder (34607108) Generalized anxiety disorder (F41.1) Active confirmed Problem Attention deficit hyperactivity disorder, predominantly inattentive type (73495334) Attention-deficit hyperactivity disorder, predominantly inattentive type (F90.0) Active confirmed Problem Attention-defici t hyperactivity disorder, unspecified type (F90.9) Active confirmed Vital Signs Heart Rate 65 /min 10/14/2024 Height-cm 170.18 cm 10/14/2024 Blood pressure diastolic 78 mm Hg 10/14/2024 Weight-kg 98.43 kg 10/14/2024 Height 67.00 in 10/14/2024 Blood pressure systolic 134 mm Hg 10/14/2024 Weight 217 lbs 10/14/2024 BMI 33.98 kg/m2 10/14/2024 Encounters Encounter Location Date Provider Diagnosis [facility] [address] [address] 02/12/2024 Nelson Mock Attention-deficit hyperactivity disorder, predominantly inattentive type F90.0 ; Generalized anxiety disorder F41.1 and Major depressive disorder, single episode, in full remission F32.5 [facility] [address] [facility] [address] [place] [address] 06/17/2024 Nelson Mock Attention-deficit hyperactivity disorder, predominantly inattentive type F90.0 ; Generalized anxiety disorder F41.1 and Major depressive disorder, single episode, in full remission F32.5 [facility] [address] [facility] [address] [place] [address] 10/14/2024 Nelson Mock Attention-deficit hyperactivity disorder, predominantly inattentive type F90.0 ; Generalized anxiety disorder F41.1 ; Major depressive disorder, single episode, in full remission F32.5 ; Encounter for screening for depression Z13.31 and Encounter for screening for cardiovascular disorders Z13.6 [facility], [facility] [address] [place] [address] 01/31/2024 Nelson Mock Attention-deficit hyperactivity disorder, predominantly inattentive type F90.0 [facility], [facility] [address] [place] [address] 03/20/2024 Nelson Mock Attention-deficit hyperactivity disorder, unspecified type F90.9 [facility], [facility] [address] [place] [address] 04/08/2024 Nelson Mock [facility], [facility] [address] [place] [address] 04/09/2024 Nelson Mock [facility], [facility] [address] [place] [address] 04/09/2024 Nelson Mock Attention-deficit hyperactivity disorder, unspecified type F90.9 [facility], [facility] [address] [place] [address] 05/15/2024 Nelson Mock Attention-deficit hyperactivity disorder, unspecified type F90.9 [facility], [facility] [address] [place] [address] 08/07/2024 Nelson Mock [facility], [facility] [address] [place] [address] 08/09/2024 Nelson Mock [facility], [facility] [address] [place] [address] 08/09/2024 Nelson Mock Attention-deficit hyperactivity disorder, predominantly inattentive type F90.0 [facility], [facility] [address] [place] [address] 09/30/2024 Nelson Mock Attention-deficit hyperactivity disorder, predominantly inattentive type F90.0 [facility], [facility] [address] [place] [address] 09/30/2024 Nelson Mock Attention-deficit hyperactivity disorder, predominantly inattentive type F90.0 [facility], [facility] [address] [place] [address] 11/01/2024 Nelson Mock Attention-deficit hyperactivity disorder, predominantly inattentive type F90.0 [facility] [address] [place] [address] 12/19/2024 Nelson Mock Attention-deficit hyperactivity disorder, predominantly inattentive type F90.0 [facility] [address] [facility] [address] [place] [address] 12/20/2024 Nelson Mock Attention-deficit hyperactivity disorder, predominantly inattentive type F90.0 [facility] [address] [facility] [address] [place] [address] 12/20/2024 Nelson Mock Attention-deficit hyperactivity disorder, predominantly inattentive [...] prescription for 4 months and send to [facility] pharmacy. 2. Insomnia: - Patient reports no [...] Recommend patient to consider evaluation by an supervisor telephone answering service or ENT specialist for further assessment and [...] disorder, predominantly inattentive type (ICD-10 - F90.0) 12/19/2024 Attention-defici t hyperactivity disorder, predominantly inattentive type (ICD-10 - F90.0) 12/20/2024 Attention-defici t hyperactivity disorder, predominantly inattentive type (ICD-10 - F90.0) 12/20/2024 Attention-defici t hyperactivity disorder, predominantly inattentive type [...] prescription for 4 months and send to [facility] pharmacy. 2. Insomnia: - Patient reports no [...] Recommend patient to consider evaluation by an supervisor telephone answering service or ENT specialist for further assessment and [...] prescription for 4 months and send to [facility] pharmacy. 2. Insomnia: - Patient reports no [...] Recommend patient to consider evaluation by an supervisor telephone answering service or ENT specialist for further assessment and [...] sleep despite changes in sleep pattern since halfway. Reports feeling rested with approximately 5 hours of sleep per night, which is less than previously required. This change in sleep requirements does not appear to be causing distress or impairment. Plan: - Continue to monitor sleep patterns and quality - Encourage maintaining consistent sleep schedule despite halfway the note is transcribed using speech recognition [...] Insured Coverage Start Date Coverage End Date [employer] [employer] [address] [place] [address] [id number] LAISHA SHIRA Self - patient is the insured Medical (General) History Medical History History ICD Code Problems: Adult attention deficit hypera ctivity disorder Attention deficit hyperactivity disorder Attention deficit hyperactivity disorder , predominantly inattentive type Generalized anxiety disorder Long-term current use of drug therapy Major depression in full remission , Imported from Highlights: e patient has been primarily dealing with osteoarthritis in the left knee. On November 07, 2023, the patient underwent preoperative examination and testing at [facility] under the care of Sofi Correia PT and Molly Akers RN. The patient then underwent left knee joint replacement surgery on November 21, 2023, performed by Alcides Mancilla MD at [facility]. Post-surgery, the patient received aftercare and home visits from various healthcare professionals from [facility] and [facility], including Arpita Shepherd PTA, Hattie Millan PTA, Pilar Sidhu PT, and Sarah Aguiar RN. The patient also had office visits and telephone consultations with Alcides Mancilla MD and Yris Gamino at [facility] for nerve pain and aftercare following the knee surgery. As of the last update on July 16, 2024, the patient was still in contact with Alcides Mancilla MD at [facility] for aftercare following the left knee joint replacement surgery. Surgical History Surgery Date(Month/Year) Other
--- OUTSIDE RECORDS SUMMARY | 2024-12-30 12:13 | XMS_ITS | Clinical Summary ---
Author Organization [facility] Address [address] [place] [address] Phone Care Team Providers Care Digital Specialist Name Role Phone Nancy Bassett APRN Primary Care Provider [phone] Allergies No known active allergies Medications ALPRAZolam (XANAX) 0.25 MG TabletIndications:A nxiety Take 0.25 mg by mouth as needed for Anxiety. rx [id number] Indications: Feeling Anxious Active atorvastatin (LIPITOR) 40 MG TabletIndications:H yperlipidemia Take 40 mg by mouth daily. [id number] Indications: High Amount of Fats in the Blood Active ondansetron (ZOFRAN) 4 MG TabletIndications:N ausea and Vomiting Take 4 mg by mouth every 8 hours as needed for Nausea - 1st line. rx [id number] Indications: Nausea and Vomiting Active Metoprolol Succinate 50 MG Capsule ER 24 Hour SprinkleIndications :Hypertension Take 50 mg by mouth daily. rx [id number] Indications: High Blood Pressure Disorder Active Amphetamine ER 20 MG Tablet Chewable Extended Release Take 20 mg by mouth daily (with breakfast). RX [id number] Active FLUoxetine (PROzac) 20 MG CapsuleIndications: Depression Take 20 mg by mouth daily. rx [id number] Indications: Depression Active HYDROcodone-acetami nophen (NORCO) 5-325 MG Tablet Take 1 Tablet by mouth every 4 hours as needed for Mild or more severe pain. Take 1 to 2 tabs by mouth every 4 hours as needed for pain RX [id number] Active omeprazole (PriLOSEC) 40 MG CAPSULE DELAYED RELEASEIndications: Symptomatic Gastroesophageal Reflux Disease (Inactive) Take 40 mg by mouth daily. rx [id number] Indications: Gastroesophageal Reflux Disease with Current Symptoms Active apixaban (ELIQUIS) 2.5 MG Tablet Take 2.5 mg by mouth 2 times daily. take 1 tab by mouth twice daiy for 28 doses rx [id number] Active albuterol 108 (90 Base) MCG/ACT Aerosol [...] hours as needed for Muscle spasms. rx [id number] Indications: Muscle Spasm Active traMADol (ULTRAM) 50 MG TabletIndications:P ain Take 50 mg by mouth every 6 hours as needed for Mild or more severe pain. rx [id number] Indications: Pain Active Social History Tobacco Use [...] Plan of Treatment Not on file Insurance [facility] Advance Directives * Full Code (Latest Code Status on File) Date Activated Date Inactivated Comments 12/01/2023 2:01 PM Care Teams Digital Specialist Relationship Specialty Start Date End Date Nancy Bassett APRN PCP - General Advanced Practice Nurse 11/22/23
--- OUTSIDE RECORDS SUMMARY | 2024-12-30 12:13 | XMS_ITS | Clinical Summary ---
Author Organization [facility] [place] [facility] [place] Address [facility] [place] [address] Care Team Providers Care Business Support Associate Name Role Phone Jovanny Cobos MD Unavailable [phone] Nancy Bassett NP Primary Care Provider [phone] Yris Gamino Unavailable [phone] Allergies No known active allergies Medications metoprolol [...] Tobacco: Never Tobacco Cessation:Counseling Given: Not Answered [facility] Utilities Answer Date Recorded In the past [...] often do you attend chur ch or roman catholic services? More than 4 times per year 11/22/2023 Do you belong to any clubs o r organizations such as taoism groups, unions, fraternal or athletic groups, or [...] any time in the past 12 m [facility], were you homeless or living in a detention (including now)? No 11/22/2023 Personal Safety Answer Date Recorded Have you ever been in or are you currently in a harmful physical or emotional relationship or is someone making you feel afraid or unsafe? 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 Gender Identity Not on file Sexual Orientation [...] this topic Medical Devices Implanted Type Area Carburizing Furnace Operator Device Identifier Shelf Expiration Date Model / Serial / Lot Screw Screw Right: Foot [employer] Simplex P Radiopaque Full Dose Cement Bone Sterile 6191-1-010 - [id number] - [id number] Implanted:Qty: 1 on 11/21/2023 by Alcides Mancilla MD at [facility] Left: Knee [employer] 10/23/2025 6191-1-010 / [id number] / [id number] [employer]/Or tho Cmpnt Patellar Std 29mm Resurfacing Round Journey [id number] - [id number] Implanted:Qty: 1 on 11/21/2023 by Alcides Mancilla MD at [facility] Left: Knee [employer] rtho [id number] 07/30/2033 [id number] / / [id number] [employer]/Or tho Journey Ii 9mm Bicruciate Stabilized Left 3-4 Insert Articular [id number] - [id number] Implanted:Qty: 1 on 11/21/2023 by Alcides Mancilla MD at [facility] Left: Knee [employer] r[employer]o [id number] 07/03/2033 [id number] / / [id number] [employer]/Or tho Journey Bicruciate Stabilize Knee Left 4 Baseplate Tibial [id number] - [id number] Implanted:Qty: 1 on 11/21/2023 by Alcides Mancilla MD at [facility] Left: Knee [employer] rtho [id number] 07/15/2033 [id number] / / [id number] [employer]/Or tho Journey Ii 67.5x62.7mm Bicruciate Stabilize Knee Left 5 Component [id number] - [id number] Implanted:Qty: 1 on 11/21/2023 by Alcides Mancilla MD at [facility] Left: Knee [employer]o [id number] 07/03/2033 [id number] Insurance [employer] O[employer] Advance Directives For more information, please contact: [phone] * Full Code (Latest Code Status on File) Date Activated Date Inactivated Comments 11/21/2023 10:33 AM 11/22/2023 5:56 PM Care Teams Business Support Associate Relationship Specialty Start Date End Date Nancy Bassett NP [address] [place] [address] [place] [address] PCP - General Nurse Practitioner 10/13/23 Jovanny Cobos MD [address] [place] [address] [address] [place] [address] Referring Physician Cardiovascular Disease 10/13/23 Yris Gamino PA [address] [facility] [address] [place] [address] Physician Bar Useful Or [facility] 11/22/23
--- OUTSIDE RECORDS SUMMARY | 2024-12-30 12:13 | XMS_ITS | Continuity of Care Document ---
Author Organization [facility] Address [address] [place] [address] Phone Care Team Providers Care Deaf Interpreter Name Role Phone Kahlil Null Unavailable Unavailable Advance Directives Directive Yes / No Effective Date File Name No Information Encounters Encounter Description Practice Location Reason(s) For Visit Diagnoses Date Provider Providers Copied on Encounter [facility], [id number] [place] [address] [address], [place], [place], [id number], [place] tel:[phone] [facility] No Information Aug-0 6-200 1 Chaka Edandrea. [address] [facility] , [address], [place], [address], [place]. tel:[phone] Family History Family Member Type Diagnosis Age At Onset No Information Payers Payer name Insurance type Covered republican ID Authoriza tion(s) No Information Social History [...]
--- OUTSIDE RECORDS SUMMARY | 2024-12-30 12:13 | XMS_ITS | Encounter Summary ---
Author Organization [facility] Address [address] [facility] [place] [address] Phone Care Team Providers Care Transportation Logistics Internship Name Role Phone Nancy Bassett APRN Primary Care Provider [phone] Reason for Visit * Reason Onset Date Comments Medication Management 12/06/2023 Encounter Details Date Type Department Care Team (Late st Contact Info) Description 12/06/2023 Telephone [facility] [address] [place] [address] Lexy Harrell, RN [place] Medication Management Social [...] on filedocumented in this encounter Care Teams Transportation Logistics Internship Relationship Specialty Start Date End Date Nancy Bassett APRN PCP - General Advanced Practice Nurse 11/22/23 documented as of this encounter
== END 2024-12-30 12:10 | disposition home or self-care (01) ==
PROVIDERS: PCP Nurse Practitioner Adult Health; Visit Provider Nurse Practitioner Adult Health
DX: R92.8 Other abnormal and inconclusive findings on diagnostic imaging of breast (principal)
CPT/HCPCS: 76642; 77061; 77065; G0279

== ENCOUNTER 2025-04-28 13:39 | Outpatient (CLI) | payer MEDICARE, SELFPAY ==
--- NOTE | ~2025-04-28 | CT_ITS ---
Exam: CT chest without contrast Clinical History: [Shortness of breath. ] Comparison: [ None available] Technique: Multiple axial CT images of the chest without with IV contrast. Sagittal and coronal reformatted images were obtained. FINDINGS: Lungs and pleura: [ Mild biapical scarring. No pneumothorax. No pleural effusion. No pulmonary mass. There is a 1 cm calcified granuloma in the right middle lobe.] No focal pulmonary consolidation. Tracheobronchial tree is patent. Mediastinum and pulmonary sara: [ No mass or adenopathy.] Axillary/intramammary and supraclavicular: [ No mass or adenopathy.] Heart and great vessels: [ Normal heart size.[ [ No pericardial effusion.] [ No aneurysm.] Chest Wall: [ Unremarkable.] Upper Abdomen: [ No significant findings.] Osseous structures: [ No acute fracture or destructive lesion.] [ Multilevel degenerative change in the visualized spine.] Additional findings: There is a 2.3 cm right thyroid nodule. A thyroid ultrasound is recommended. There is a 5.5 x 4.2 cm indeterminate mass in the posterior segment of the right lobe of the liver. IMPRESSION: 1. There is a 5.5 x 4.2 cm indeterminate mass in the posterior segment of the right lobe of the liver. A liver mass CT or MRI is recommended. 2. There is a 2.3 cm right thyroid nodule. A thyroid ultrasound is recommended. 3. No CT evidence for an acute process in the chest. Reviewed, dictated and finalized at location [facility]. [employer] IMPRESSION: 1. There is a 5.5 x 4.2 cm indeterminate mass in the posterior segment of the r ight lobe of the liver. A liver mass CT or MRI is recommended. 2. There is a 2.3 cm right thyroid nodule. A thyroid ultrasound is recommended. 3. No CT evidence for an acute process in the chest.
== END 2025-04-28 13:40 | disposition home or self-care (01) ==
PROVIDERS: PCP Nurse Practitioner Adult Health; Visit Provider Nurse Practitioner Adult Health
DX: R06.02 Shortness of breath (principal); J45.909 Unspecified asthma, uncomplicated; E04.1 Nontoxic single thyroid nodule
CPT/HCPCS: 71250

== ENCOUNTER 2025-05-08 10:52 | Outpatient (CLI) | payer MEDICARE, SELFPAY ==
--- NOTE | ~2025-05-08 | US_ITS ---
EXAMINATION: US thyroid DATE: 05/08/2025 12:16 INDICATION: Nodules TECHNIQUE: Multiple ultrasound images of the thyroid were obtained. COMPARISON: None. FINDINGS: The right thyroid lobe measures 5.0 x 1.8 x 1.4 cm. The left thyroid lobe measures 4.9 x 1.8 x 1.4 cm. Complex nodule in the right lobe measures 2.5 x 1.7 x 2.2 cm TI RADS 4 nodule. Complex nodule in the left lobe measures 8 x 8 x 4 mm. TI-RADS 3 nodule No other suspicious nodules or masses seen. Echotexture and vascular flow for the thyroid appears normal other than nodules noted above. IMPRESSION: 1. Complex nodule in the right lobe measures 2.5 x 1.7 x 2.2 cm TI RADS 4 nodule. 2. Less suspicious subcentimeter nodule in the left lobe. Reviewed, dictated and finalized at location A. INSPECTOR IMPRESSION: 1. Complex nodule in the right lobe measures 2.5 x 1.7 x 2.2 cm TI RADS 4 nodul e. 2. Less suspicious subcentimeter nodule in the left lobe.
--- OUTSIDE RECORDS SUMMARY | 2025-05-08 11:55 | XMS_ITS | Clinical Summary ---
Author Organization [facility] Address [address] [place] [address] Phone Care Team Providers Care Cover Stripper Name Role Phone Nancy Bassett APRN Primary Care Provider [phone] Allergies No known active allergies Medications ALPRAZolam (XANAX) 0.25 MG TabletIndications:A nxiety Take 0.25 mg by mouth as needed for Anxiety. rx [id number] Indications: Feeling Anxious Active atorvastatin (LIPITOR) 40 MG TabletIndications:H yperlipidemia Take 40 mg by mouth daily. [id number] Indications: High Amount of Fats in the Blood Active ondansetron (ZOFRAN) 4 MG TabletIndications:N ausea and Vomiting Take 4 mg by mouth every 8 hours as needed for Nausea - 1st line. rx [id number] Indications: Nausea and Vomiting Active Metoprolol Succinate 50 MG Capsule ER 24 Hour SprinkleIndications :Hypertension Take 50 mg by mouth daily. rx [id number] Indications: High Blood Pressure Disorder Active Amphetamine ER 20 MG Tablet Chewable Extended Release Take 20 mg by mouth daily (with breakfast). RX [id number] Active FLUoxetine (PROzac) 20 MG CapsuleIndications: Depression Take 20 mg by mouth daily. rx [id number] Indications: Depression Active HYDROcodone-acetami nophen (NORCO) 5-325 MG Tablet Take 1 Tablet by mouth every 4 hours as needed for Mild or more severe pain. Take 1 to 2 tabs by mouth every 4 hours as needed for pain RX [id number] Active omeprazole (PriLOSEC) 40 MG CAPSULE DELAYED RELEASEIndications: Symptomatic Gastroesophageal Reflux Disease (Inactive) Take 40 mg by mouth daily. rx [id number] Indications: Gastroesophageal Reflux Disease with Current Symptoms Active apixaban (ELIQUIS) 2.5 MG Tablet Take 2.5 mg by mouth 2 times daily. take 1 tab by mouth twice daiy for 28 doses rx [id number] Active albuterol 108 (90 Base) MCG/ACT Aerosol [...] hours as needed for Muscle spasms. rx [id number] Indications: Muscle Spasm Active traMADol (ULTRAM) 50 MG TabletIndications:P ain Take 50 mg by mouth every 6 hours as needed for Mild or more severe pain. rx [id number] Indications: Pain Active Social History Tobacco Use [...] Plan of Treatment Not on file Insurance [facility] Advance Directives * Full Code (Latest Code Status on File) Date Activated Date Inactivated Comments 12/01/2023 2:01 PM Care Teams Cover Stripper Relationship Specialty Start Date End Date Nancy Bassett APRN PCP - General Advanced Practice Nurse 11/22/23
--- OUTSIDE RECORDS SUMMARY | 2025-05-08 11:55 | XMS_ITS | Encounter Summary ---
Author Organization [facility] Address [address] [place] [address] Phone Care Team Providers Care Director Of Primary Name Role Phone Nancy Bassett APRN Primary Care Provider [phone] Reason for Visit * Reason Onset Date Comments Medication Management 12/12/2023 Encounter Details Date Type Department Care Team (Late st Contact Info) Description 12/12/2023 [facility] [address] [place] [address] Lexy Harrell, RN [place] Medication Management Social [...] No changes, actions required. Patient admitted to [facility] on 12/12/23 for therapy. Medication review completed with [facility] therapist on 12/12/23, Patient is symptomatic with discomfort to arm after fracture with surgical repair Please route response to P Clinical Support Triage or call [facility] [phone] option 4 for a nurse. Response is required within 24 hours to meet regulatory requirements. Thank you documented in this encounter Plan of Treatment Not on file documented as of this encounter Visit Diagnoses Not on filedocumented in this encounter Care Teams Director Of Primary Relationship Specialty Start Date End Date Nancy Bassett APRN PCP - General Advanced Practice Nurse 11/22/23 documented as of this encounter
--- OUTSIDE RECORDS SUMMARY | 2025-05-08 11:55 | XMS_ITS | Clinical Summary ---
Author Organization [facility] [place] Address [facility] [place] [address] Care Team Providers Care Duplex Trimmer Name Role Phone Jovanyn Cobos MD Unavailable [phone] Nancy Bassett NP Primary Care Provider [phone] Yris Gamino Unavailable [phone] Allergies No known active allergies Medications metoprolol [...] Tobacco: Never Tobacco Cessation:Counseling Given: Not Answered [facility] Utilities Answer Date Recorded In the past 12 months has th e electric, gas, oil, or water company threatened to shut off services in your home? No 11/22/2023 Social Connection and Isolation Panel Answer Date Recorded In a typical week, how many times do you talk on the phone with family, friends, or neighbors? More than three times a week 11/22/2023 How often do you get togethe r with friends or relatives? More than three times a week 11/22/2023 How often do you attend chur ch or mandaeism services? More than 4 times per year 11/22/2023 Do you belong to any clubs o r organizations such as worship groups, unions, fraternal or athletic groups, or [...] any time in the past 12 m [facility], were you homeless or living in a long term (including now)? No 11/22/2023 Personal Safety Answer Date Recorded Have you ever been in or are you currently in a harmful physical or emotional relationship or is someone making you feel afraid or unsafe? Denies 11/21/2023 Comments Unknown Sex and Gender Information Value Date Recorded Sex Assigned at Not on file Legal Sex Female 10:03 PM [employer] Gender Identity Not on file Sexual Orientation [...] Depression Screening 1960 Hepatitis C Screening 1960 Osteoporosis Screening-Bone Density Scan 1960 DTaP/Tdap/Td Vaccine (1 - Tdap) 1971 Hepatitis B Screening 1978 Pneumococcal vaccine 65+ (1 of 1 - PCV) 2010 Zoster Vaccine (1 of 2) 2010 Fall Risk Assessment 11/21/2024 11/22/2023 Influenza Vaccine (#1) 2025 Well Visit 65+ 2025 Medical Devices Implanted Type Area Business Functional Analyst Device Identifier Shelf Expiration Date Model / Serial / Lot Screw Screw Right: Foot [employer] Simplex P Radiopaque Full Dose Cement Bone Sterile 6191-1-010 - [id number] - [id number] Implanted:Qty: 1 on 11/21/2023 by Alcides Mancilla MD at [facility] Left: Knee [employer] 10/23/2025 6191-1-010 / [id number] / [id number] [employer]/Or tho Cmpnt Patellar Std 29mm Resurfacing Round Journey [id number] - [id number] Implanted:Qty: 1 on 11/21/2023 by Alcides Mancilla MD at [facility] Left: Knee [employer] [id number] 07/30/2033 [id number] / / [id number] [employer]Or tho Journey Ii 9mm Bicruciate Stabilized Left 3-4 Insert Articular [id number] - [id number] Implanted:Qty: 1 on 11/21/2023 by Alcides Mancilla MD at [facility] Left: Knee [employer] [id number] 07/03/2033 [id number] / / [id number] [employer]Or tho Journey Bicruciate Stabilize Knee Left 4 Baseplate Tibial [id number] - [id number] Implanted:Qty: 1 on 11/21/2023 by Alcides Mancilla MD at [facility] Left: Knee [employer] [id number] 07/15/2033 [id number] / / [id number] [employer] Journey Ii 67.5x62.7mm Bicruciate Stabilize Knee Left 5 Component [id number] - [id number] Implanted:Qty: 1 on 11/21/2023 by Alcides Mancilla MD at [facility] Left: Knee [employer] [id number] 07/03/2033 [id number] Insurance [employer] Advance Directives For more information, please contact: [phone] * Full Code (Latest Code Status on File) Date Activated Date Inactivated Comments 11/21/2023 10:33 AM 11/22/2023 5:56 PM Care Teams Duplex Trimmer Relationship Specialty Start Date End Date Nancy Bassett NP [address] [place] [address] [place] [address] PCP - General Nurse Practitioner 10/13/23 Jovanny Cobos MD [address] [place] [address] DR AGU[address] [place] [address] Referring Physician Cardiovascular Disease 10/13/23 Yris Gamino PA [address] [facility] [address] [place] [id number] Physician Assurance Officer Orthopedic Surgery 11/22/23
--- OUTSIDE RECORDS SUMMARY | 2025-05-08 11:55 | XMS_ITS | Patient Health Record ---
Author Organization [facility] [place] Address [address] [place] [address] Care Team Providers Care Barnworker Groom Name Role Phone Nancy Bassett APRN Primary Care Provider Unanuris everett MockNelson masterson Unavailable [phone] Allergies No Known Allergies Results Component Value Reference Range Notes UDT Reviewed date:03/07/2025 09:50:18 AM Interpretation: Performing Lab: Notes/Report: Amphetamine (AMP) N 0 - 1000 ng/ml Buprenorphine (BUP) N 0 - 10 ng/ml Oxazepam (BZO) N 0 - 300 ng/ml Cocaine (DEANNE) N 0 - 300 ng/ml Methamphetamine (mAMP) N 0 - 300 ng/ml Methylenedioxymethamphetamine (MDMA) N 0 - 500 ng/ml Morphine (MOP) N 0 - 25 ng/ml Methadone (MTD) N 0 - 300 ng/ml Oxycodone (OXY) N 0 - 300 ng/ml THC N 0 - 50 ng/ml x N 0 - 1000 ng/ml x N 0 - 1000 ng/ml x N 0 - 300 ng/ml x N 0 - 300 ng/ml Reason For Referral No Information Medications Medication SIG (Take, Route, Frequency, Duration) Notes Start Date End Date Status Amphetamine-Dextroamp het ER 20 MG Capsule Extended Release 24 Hour 1 capsule every morning Oral Once a day; Duration: 30 days 04/25/2025 Active Fluticasone Propionate Diskus 50 MCG/ACT Aerosol Powder Breath Activated Inhalation *Reorder from [employer] for eRx and Interaction Alerts* 10/17/2023 Active Metoprolol Succinate ER 50 MG Tablet Extended Release 24 Hour Oral 10/17/2023 Active Omeprazole 40 MG Capsule Delayed Release Oral 10/17/2023 Active FLUoxetine HCl 20 MG Capsule Oral 10/17/2023 Active Meloxicam 15 MG Tablet Oral 10/17/2023 Active Nystatin 406509 UNIT/ML Suspension Mouth/Throat 10/17/2023 Active Metoprolol Succinate *Pick stren gth-form from [facility] for eRX* 10/17/2023 Active Atorvastatin Calcium 40 MG Tablet Oral 10/17/2023 Active ProAir HFA 108 (90 Base) MCG/ACT Aerosol Solution Inhalation 10/17/2023 Active Montelukast Sodium 10 MG Tablet Oral 10/17/2023 Active Sulfamethoxazole-Trim ethoprim 800-160 MG Tablet Oral 10/17/2023 Active BREYNA 160 MCG-4.5 MCG/ACTUATION HFA AEROSOL INHALER *Reorder from [facility] for eRx and Interaction Alerts* 10/17/2023 Active FLUTICASONE 250 MCG-SALMETEROL 50 MCG/DOSE BLISTR POWDR FOR INHALATION *Reorder from [facility] for eRx and Interaction Alerts* 10/17/2023 Active ALPRAZolam 0.25 MG Tablet 1 tablet Oral Twice a day; Duration: 30 days As needed 08/07/2024 Active Immunizations Vaccine Route Administration Date Status Comme nts Tdap Unknown 10/12/2005 Administered Tdap Unknown 07/27/2013 Administered Pfizer Biontech Covid-19 Vac cine 2nd dose Unknown 10/16/2020 Administered Pfizer Biontech Covid-19 Vac cine 2nd dose Unknown 11/09/2020 Administered Novel [id number], preservative free Unknown 04/12/2016 Administered Novel [id number], preservative free Unknown 07/18/2019 Administered Influenza, seasonal, [...] History Observation Description Sex Assigned At Female Social History Miscellaneous: Social Info Question Answer Notes Advance Care Planning Are you your own decision-maker Yes Do you have Power of Medical Or Surgical Instrument Maker for Health or Medi ivan? Yes Tobacco Use: Social Info Question Answer Notes Tobacco Control (Standard) Tobacco use: Nonsmoker Additional Details Category Social Info Options Details Migrated Social History Migrated Social History Alcohol Intake: None 05/23/2018,Tobacco Years: Never smoker 05/23/2018 Problems Problem Type SNOMED Code ICD Code Onset Dates Problem Status W/U Status Risk Notes Problem Major depression, single episode, in complete remission (10067216) Major depressive disorder, single episode, in full remission (F32.5) Active confirmed Problem Generalized anxiety disorder (76524961) Generalized anxiety disorder (F41.1) Active confirmed Problem Attention deficit hyperactivity disorder, 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, predominantly inattentive type (F90.0) Active confirmed Problem Attention deficit hyperactivity disorder (308335316) Attention-deficit hyperactivity disorder, unspecified type (F90.9) Active confirmed Vital Signs Heart Rate 68 /min 03/06/2025 Height-cm 170.18 cm 03/06/2025 Blood pressure diastolic 73 mm Hg 03/06/2025 Weight-kg 100.7 kg 03/06/2025 Height 67.00 in 03/06/2025 Blood pressure systolic 122 mm Hg 03/06/2025 Weight 222 lbs 03/06/2025 BMI 34.77 kg/m2 03/06/2025 Encounters Encounter Location Date Provider Diagnosis [facility] [address] [place] [address] 06/17/2024 Nelson Mock Attention-deficit hyperactivity disorder, predominantly inattentive type F90.0 ; Generalized anxiety disorder F41.1 and Major depressive disorder, single episode, in full remission F32.5 [facility] [address] [place] [address] 10/14/2024 Nelson Mock Attention-deficit hyperactivity disorder, predominantly inattentive type F90.0 ; Generalized anxiety disorder F41.1 ; Major depressive disorder, single episode, in full remission F32.5 ; Encounter for screening for depression Z13.31 and Encounter for screening for cardiovascular disorders Z13.6 [facility] [address] [place] [address] 03/06/2025 Nelson Mock Attention-deficit hyperactivity disorder, predominantly inattentive type F90.0 ; Generalized anxiety disorder F41.1 and Major depressive disorder, single episode, in full remission F32.5 [facility], [facility] [address] [place] [address] 05/15/2024 Nelson Mock Attention-deficit hyperactivity disorder, unspecified type F90.9 [facility], [facility] [address] [place] [address] 08/07/2024 Nelson Mock [facility], [facility] [address] [place] [address] 08/09/2024 Nelson Mock [facility], [facility] [address] [place] [address] 08/09/2024 Nelson Mock Attention-deficit hyperactivity disorder, predominantly inattentive type F90.0 [facility], [facility] [address] [place] [address] 09/30/2024 Nelson Mock Attention-deficit hyperactivity disorder, predominantly inattentive type F90.0 [facility], [facility] [address] [place] [address] 09/30/2024 Nelson Mock Attention-deficit hyperactivity disorder, predominantly inattentive type F90.0 [facility], [facility] [address] [place] [address] 11/01/2024 Nelson Mock Attention-deficit hyperactivity disorder, predominantly inattentive type F90.0 [facility], [facility] [address] [place] [address] 12/19/2024 Nelson Mock Attention-deficit hyperactivity disorder, predominantly inattentive type F90.0 [facility], [facility] [address] [place] [address] 12/20/2024 Nelson Mock Attention-deficit hyperactivity disorder, predominantly inattentive type F90.0 [facility], [facility] [address] [place] [address] 12/20/2024 Nelson Mock Attention-deficit hyperactivity disorder, predominantly inattentive type F90.0 [facility], [facility] [address] [place] [address] 03/03/2025 Nelson Mock [facility] [employer] [facility] [address] [place] [address] 03/03/2025 Nelson Mock [facility] [employer] [facility] [address] [place] [address] 04/10/2025 Nelson Mock Attention-deficit hyperactivity disorder, predominantly inattentive type F90.0 [facility] [address] [place] [address] 04/24/2025 Nelson Mock [facility] [employer] [facility] [address] [place] [address] 04/25/2025 Nelson Mock Attention-deficit hyperactivity disorder, predominantly inattentive type F90.0 Assessments Encounter Date Diagnosis (ICD Code) Assessment Notes Treatment Notes Treatment Clinical Notes Section Notes 05/15/2024 Attention-defici t hyperactivity disorder, unspecified type [...] prescription for 4 months and send to [facility] pharmacy. 2. Insomnia: - [...] Recommend patient to consider evaluation by an hand profiler or ENT specialist for further assessment and [...] disorder, predominantly inattentive type (ICD-10 - F90.0) 03/06/2025 Attention-defici t hyperactivity disorder, predominantly inattentive type (ICD-10 - F90.0) cont Adderall xr 20mg Coadministratio n of proton pump inhibitors may decrease the time to peak plasma concentration and pharmacologic effects of extended release Amphetamine-Dex troamphet ER Oral Capsule Extended Release 24 Hour 20 MG (ie, Adderall XR). This interaction does not apply to immediate-relea se amphetamine/dex troamphetamine preparations. 04/10/2025 Attention-defici t hyperactivity disorder, predominantly inattentive type (ICD-10 - F90.0) 04/25/2025 Attention-defici t hyperactivity disorder, predominantly inattentive type (ICD-10 - F90.0) 03/06/2025 Generalized anxiety disorder (ICD-10 - F41.1) cont fluoxetine 20mg daily - prescribed by pcp alprazolam 0.5mg prn- prescribed by pcp 06/17/2024 Generalized anxiety disorder (ICD-10 - F41.1) cont fluoxetine 20mg daily - prescribed by pcp alprazolam 0.5mg prn- prescribed by pcp 1. ADHD: - Patient reports consistent use of Adderall XR 20 mg and finds it beneficial. No significant side effects reported. - Plan: Continue Adderall XR 20 mg daily. Refill prescription for 4 months and send to [facility] pharmacy. 2. Insomnia: - [...] Recommend patient to consider evaluation by an hand profiler or ENT specialist for further assessment and management. 10/14/2024 Generalized anxiety disorder (ICD-10 - F41.1) cont fluoxetine 20mg daily - prescribed by pcp alprazolam 0.5mg prn- prescribed by pcp 06/17/2024 Major depressive disorder, single episode, in full remission (ICD-10 - F32.5) 1. ADHD: - Patient reports consistent use of Adderall XR 20 mg and finds it beneficial. No significant side effects reported. - Plan: Continue Adderall XR 20 mg daily. Refill prescription for 4 months and send to [facility] pharmacy. 2. Insomnia: - [...] Recommend patient to consider evaluation by an hand profiler or ENT specialist for further assessment and management. 10/14/2024 Major depressive disorder, single episode, in full remission (ICD-10 - F32.5) 03/06/2025 Major depressive disorder, single episode, in full [...] efforts have been made to correct them. 03/06/2025 Lila Ibrahim, a retired patient with a history of ADHD and depression, presents for medication management and follow-up. Attention Deficit Hyperactivity Disorder (ADHD) Assessment: Patient reports that ADHD symptoms are generally well-managed with current medication, though notes that the duration of effect could be longer. The medication's effectiveness varies depending on the time of administration, typically wearing off in mid to early afternoon if taken early in the morning, or lasting until early evening if taken later in the day. Patient indicates that the current regimen is sufficient for their needs in halfway, but acknowledges it might be different if they were working or needed to concentrate more intensively. Plan: - Continue Adderall XR - Refill Adderall XR prescription Depression Assessment: Patient denies significant depressive symptoms, reporting only occasional, transient low mood that they can snap out of. This suggests that current management with fluoxetine is effective in maintaining mood stability. Plan: - Continue fluoxetine Anxiety Assessment: Patient reports occasional use of Xanax for sleep and episodes of feeling anxious or nervous without clear precipitants. Usage has increased slightly but remains infrequent, with a 30-tablet prescription lasting 4-5 months. Plan: - Continue Xanax as needed Sleep Disturbance Assessment: Patient reports irregular sleep patterns since halfway, including daily naps. They acknowledge that sleep quality might improve without napping but are content with their current sleep routine given their retired lifestyle. Plan: - Follow up in 4 months the note is transcribed using speech recognition software. It is a reflection of a visit with the patient. It might have some inaccuracy, including medication names and transcribing errors, though efforts have been made to correct them. Plan Of Treatment Next Appt Details Provider Name:Nelson wilson, 07/07/2025 01:30:00 PM, [address], [facility] [address], [place], [address], Insurance Providers Payer Name Payer Address Payer Phone Subscriber Number Group Number Insured Name Patient Relationship to Insured Coverage Start Date Coverage End Date [facility] [address] [place] [address] [id number] SHIRA IBRAHIM Self - patient is the [...] patient underwent preoperative examination and testing at [facility] under the care of Sofi Correia PT and Molly Akers RN. The patient then underwent left knee joint replacement surgery on November 21, 2023, performed by Alcides Mancilla MD at [facility]. Post-surgery, the patient received aftercare and home visits from various healthcare professionals from [facility] and [facility], including Arpita Shepherd PTA, [place], Marcia DEAF/HARD OF HEARING SPECIALIST, Pilar Sidhu PT, and Sarah Aguiar RN. The patient also had office visits and telephone consultations with Alcides Mancilla MD and Yris Gamino at [facility] for nerve pain and aftercare following the knee surgery. As of the last update on July 16, 2024, the patient was still in contact with Alcides Mancilla MD at [facility] for aftercare following the left knee joint replacement surgery. Surgical History Surgery Date(Month/Year) Other
--- OUTSIDE RECORDS SUMMARY | 2025-05-08 11:55 | XMS_ITS | Encounter Summary ---
Author Organization [facility] Address [address] [place] [address] Phone Care Team Providers Care Duco Polisher Name Role Phone Nancy Bassett APRN Primary Care Provider [phone] Reason for Visit * Reason Onset Date Comments Medication Management 12/06/2023 Encounter Details Date Type Department Care Team (Late st Contact Info) Description 12/06/2023 Telephone [facility] [address] [place] [address] Lexy Harrell, RN [place] Medication Management Social [...] on filedocumented in this encounter Care Teams Duco Polisher Relationship Specialty Start Date End Date Nancy Bassett APRN PCP - General Advanced Practice Nurse 11/22/23 documented as of this encounter
== END 2025-05-08 10:53 | disposition home or self-care (01) ==
PROVIDERS: PCP Nurse Practitioner Adult Health; Visit Provider Nurse Practitioner Adult Health
DX: E07.89 Other specified disorders of thyroid (principal); E04.1 Nontoxic single thyroid nodule
CPT/HCPCS: 76536

== ENCOUNTER 2025-06-03 06:40 | Outpatient (CLI) | payer MEDICARE, SELFPAY ==
--- NOTE | ~2025-06-03 | MR_ITS ---
EXAMINATION: MR abdomen wo/w con DATE: 06/03/2025 07:36 INDICATION: Liver mass on prior ultrasound TECHNIQUE: Magnetic resonance imaging (MRI) of the abdomen was performed without and with 15 mL Multihance intravenous contrast. Sequences included coronal T2- weighted SS-FSE, coronal and axial FS 2D-FIESTA, axial STIR FSE, axial T2- weighted SS-FSE, axial T2-weighted FS SS-FSE, axial diffusion-weighted SE, axial dual-echo T1-weighted FSPGR, and axial and coronal T1-weighted LAVA. Postcontrast axial T1-weighted LAVA images were obtained in a time course. Postcontrast coronal T1-weighted LAVA images were obtained. COMPARISON: CT dated 04/28/2025 FINDINGS: Heart size is normal. No pericardial or pleural effusion. There are a couple T2 hyperintense hemangiomas demonstrating characteristic discontiguous peripheral puddling of contrast isointense to the aorta which fills in on delayed imaging which measure 5.5 cm and 1.3 cm in the right hepatic lobe. Gallbladder, spleen, pancreas, bilateral adrenal glands and kidneys are normal. The visualized bowels are normal with no obstruction. Normal appendix. No pathologically enlarged abdominal lymphadenopathy. Mild lumbar levocurvature with mild spondylosis. Bone marrow signal is normal throughout. IMPRESSION: 1. A couple hepatic hemangiomas the larger measuring 5.5 cm corresponding to the lesion of concern on prior CT. Reviewed, dictated and finalized at location A. [facility] IMPRESSION: 1. A couple hepatic hemangiomas the larger measuring 5.5 cm corresponding to th e lesion of concern on prior CT.
--- OUTSIDE RECORDS SUMMARY | 2025-06-03 06:43 | XMS_ITS | Clinical Summary ---
Author Organization [facility] Address [facility] [place] [address] Care Team Providers Care Hunter Guide Name Role Phone Jovanny Cobos MD Unavailable [phone] Nancy Bassett NP Primary Care Provider [phone] Yris Gamino Unavailable [phone] Allergies No known active allergies Medications metoprolol [...] Tobacco: Never Tobacco Cessation:Counseling Given: Not Answered [facility] Utilities Answer Date Recorded In [...] often do you attend chur ch or mormon services? More than 4 times per year 11/22/2023 Do you belong to any clubs o r organizations such as scientologist groups, unions, fraternal or athletic groups, or [...] any time in the past 12 [facility], were you homeless or living in a [facility] (including now)? No 11/22/2023 Personal Safety Answer Date Recorded Have you ever been in or are you currently in a harmful physical or emotional relationship or is someone making you feel afraid or unsafe? 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 Gender Identity Not on file Sexual [...] 65+ 2025 Medical Devices Implanted Type Area Roller Maker Device Identifier Shelf Expiration Date Model / Serial / Lot Screw Screw Right: Foot [employer] Simplex P Radiopaque Full Dose Cement Bone Sterile 6191-1-010 - [id number] - [id number] Implanted:Qty: 1 on 11/21/2023 by Alcides Mancilla MD at [facility] Left: Knee [employer] 10/23/2025 6191-1-010 / [id number] / [id number] [employer]/Or tho Cmpnt Patellar Std 29mm Resurfacing Round Journey [id number] - [id number] Implanted:Qty: 1 on 11/21/2023 by Alcides Mancilla MD at [facility] Left: Knee [employer]o [id number] 07/30/2033 [id number] / / [id number] [employer]/Or tho Journey Ii 9mm Bicruciate Stabilized Left 3-4 Insert Articular [id number] - [id number] Implanted:Qty: 1 on 11/21/2023 by Alcides Mancilla MD at [facility] Left: Knee [employer]o [id number] 07/03/2033 [id number] / / [id number] [employer]/Or tho Journey Bicruciate Stabilize Knee Left 4 Baseplate Tibial [id number] - [id number] Implanted:Qty: 1 on 11/21/2023 by Alcides Mancilla MD at [facility] Left: Knee [employer]o [id number] 07/15/2033 [id number] / / [id number] [employer]Or [employer] Journey Ii 67.5x62.7mm Bicruciate Stabilize Knee Left 5 Component [id number] - [id number] Implanted:Qty: 1 on 11/21/2023 by Alcides Mancilla MD at [facility] Left: Knee [employer] [id number] 07/03/2033 [id number] Insurance QuickProNotes OOS [employer]OS Advance Directives For more information, please contact: [phone] * Full Code (Latest Code Status on File) Date Activated Date Inactivated Comments 11/21/2023 10:33 AM 11/22/2023 5:56 PM Care Teams Hunter Guide Relationship Specialty Start Date End Date Nancy Bassett NP [address] [place] [address] [place] [address] PCP - General Nurse Practitioner 10/13/23 Jovanny Cobos MD [address] [place] [address] [address] [place] [id number] Referring Physician Cardiovascular Disease 10/13/23 Yris Gamino PA [address] [facility] [address] [place] [id number] Physician Senior Manager Creative Services Orthopedic Surgery 11/22/23
--- OUTSIDE RECORDS SUMMARY | 2025-06-03 06:43 | XMS_ITS | Patient Health Record ---
Author Organization [facility] [employer] Address [address] [place] [address] Care Team Providers Care Physical Metallurgist Name Role Phone Nancy Bassett APRN Primary Care Provider Unanuris everett MockNelson masterson Unavailable [phone] Allergies No Known Allergies Results Component Value [...] Oral Once a day; Duration: 30 days 05/29/2025 Active Fluticasone Propionate Diskus 50 MCG/ACT Aerosol Powder Breath Activated Inhalation *Reorder from [facility] for eRx and Interaction Alerts* 10/17/2023 Active Metoprolol Succinate ER 50 MG Tablet Extended Release 24 Hour Oral 10/17/2023 Active Omeprazole 40 MG Capsule Delayed Release Oral 10/17/2023 Active FLUoxetine HCl 20 MG Capsule Oral 10/17/2023 Active Meloxicam 15 MG Tablet Oral 10/17/2023 Active Nystatin 942983 UNIT/ML Suspension Mouth/Throat 10/17/2023 Active Metoprolol Succinate *Pick stren gth-form from [facility] for eRX* 10/17/2023 Active Atorvastatin Calcium 40 MG Tablet Oral 10/17/2023 Active ProAir HFA 108 (90 Base) MCG/ACT Aerosol Solution Inhalation 10/17/2023 Active Montelukast Sodium 10 MG Tablet Oral 10/17/2023 Active Sulfamethoxazole-Trim ethoprim 800-160 MG Tablet Oral 10/17/2023 Active BREYNA 160 MCG-4.5 MCG/ACTUATION HFA AEROSOL INHALER *Reorder from [facility] for eRx and Interaction Alerts* 10/17/2023 Active FLUTICASONE 250 MCG-SALMETEROL 50 MCG/DOSE BLISTR POWDR FOR INHALATION *Reorder from [facility] for eRx and Interaction Alerts* 10/17/2023 Active ALPRAZolam 0.25 MG Tablet 1 tablet Oral Twice a day; Duration: 30 days As needed 08/07/2024 Active Immunizations Vaccine Route Administration Date Status Comme nts Tdap Unknown 10/12/2005 Administered Tdap Unknown 07/27/2013 Administered Pfizer Biontech Covid-19 Vac cine 2nd dose Unknown 10/16/2020 Administered Pfizer [employer] Covid-19 Vac cine 2nd dose Unknown 11/09/2020 Administered Novel [id number], preservative free Unknown 04/12/2016 Administered Novel [id number], preservative free Unknown 07/18/2019 Administered Influenza, seasonal, [...] decision-maker Yes Do you have Power of Handle Lathe Operator for Health or Medi ivan? Yes Tobacco Use: Social Info Question Answer Notes Tobacco Control (Standard) Tobacco use: Nonsmoker Additional Details Category Social Info Options Details Migrated Social History Migrated Social History Alcohol Intake: None 05/23/2018,Tobacco Years: Never smoker 05/23/2018 Problems Problem Type SNOMED Code ICD Code Onset Dates Problem Status W/U Status Risk Notes Problem Major depression, single episode, in complete remission (85819184) Major depressive disorder, single episode, in full remission (F32.5) Active confirmed Problem Generalized anxiety disorder (26884668) Generalized anxiety disorder (F41.1) Active confirmed Problem Attention deficit hyperactivity disorder, 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, predominantly inattentive type (F90.0) Active confirmed Problem Attention deficit hyperactivity disorder (102061959) Attention-deficit hyperactivity disorder, unspecified type (F90.9) Active confirmed Vital Signs Heart Rate 68 /min 03/06/2025 Height-cm 170.18 cm 03/06/2025 Blood pressure diastolic 73 mm Hg 03/06/2025 Weight-kg 100.7 kg 03/06/2025 Height 67.00 in 03/06/2025 Blood pressure systolic 122 mm Hg 03/06/2025 Weight 222 lbs 03/06/2025 BMI 34.77 kg/m2 03/06/2025 Encounters Encounter Location Date Provider Diagnosis [facility] [address] [place] [address] 06/17/2024 Nelson Mock Attention-deficit hyperactivity disorder, predominantly inattentive type F90.0 ; Generalized anxiety disorder F41.1 and Major depressive disorder, single episode, in full remission F32.5 [facility] [address] [place] [address] 10/14/2024 Nelson Mock Attention-deficit hyperactivity disorder, predominantly inattentive type F90.0 ; Generalized anxiety disorder F41.1 ; Major depressive disorder, single episode, in full remission F32.5 ; Encounter for screening for depression Z13.31 and Encounter for screening for cardiovascular disorders Z13.6 [facility] [address] [place] [address] 03/06/2025 Nelson Mock Attention-deficit hyperactivity disorder, predominantly inattentive type F90.0 ; Generalized anxiety disorder F41.1 and Major depressive disorder, single episode, in full remission F32.5 [facility], [facility] [address] [place] [address] 08/07/2024 Nelson Mock [facility], [facility] [address] [place] [address] 08/09/2024 Nelson Mock [facility], [facility] [address] [place] [address] 08/09/2024 Nelson Mock Attention-deficit hyperactivity disorder, predominantly inattentive type F90.0 [facility], [facility] [address] [place] [address] 09/30/2024 Nelson Mock Attention-deficit hyperactivity disorder, predominantly inattentive type F90.0 [facility], [facility] [address] [place] [address] 09/30/2024 Nelson Mock Attention-deficit hyperactivity disorder, predominantly inattentive type F90.0 [facility], [facility] [address] [place] [address] 11/01/2024 Nelson Mock Attention-deficit hyperactivity disorder, predominantly inattentive type F90.0 [facility], [facility] [address] [place] [address] 12/19/2024 Nelson Mock Attention-deficit hyperactivity disorder, predominantly inattentive type F90.0 [facility], [facility] [address] [place] [address] 12/20/2024 Nelson Mock Attention-deficit hyperactivity disorder, predominantly inattentive type F90.0 [facility], [facility] [address] [place] [address] 12/20/2024 Nelson Mock Attention-deficit hyperactivity disorder, predominantly inattentive type F90.0 [facility], [facility] [address] [place] [address] 03/03/2025 Nelson Mock [facility], [facility] [address] [place] [address] 03/03/2025 Nelson Mock [facility] [address] [place] [address] 04/10/2025 Nelsonpaula Stacyoza Attention-deficit hyperactivity disorder, predominantly inattentive type F90.0 [facility] [address] [place] [address] 04/24/2025 Nelson Mock [facility] [address] [place] [address] 04/25/2025 Nelson Mock Attention-deficit hyperactivity disorder, predominantly inattentive type F90.0 [facility] [address] [place] [address] 05/28/2025 Nelson Mock Attention-deficit hyperactivity disorder, predominantly inattentive type F90.0 Assessments Encounter Date Diagnosis (ICD Code) Assessment Notes Treatment Notes Treatment Clinical Notes Section Notes 04/25/2025 Attention-defici t hyperactivity disorder, predominantly inattentive type (ICD-10 - F90.0) 05/28/2025 Attention-defici t hyperactivity disorder, predominantly inattentive type (ICD-10 - F90.0) 04/10/2025 Attention-defici t hyperactivity disorder, predominantly inattentive type (ICD-10 - F90.0) 12/19/2024 Attention-defici t hyperactivity disorder, predominantly inattentive type (ICD-10 - F90.0) 11/01/2024 Attention-defici t hyperactivity disorder, predominantly inattentive [...] apply to immediate-relea se amphetamine/dex troamphetamine preparations. 06/17/2024 Attention-defici t hyperactivity disorder, predominantly inattentive [...] prescription for 4 months and send to [facility] pharmacy. 2. Insomnia: - Patient [...] Recommend patient to consider evaluation by an security screener or ENT specialist for further assessment and management. 09/30/2024 Attention-defici t hyperactivity disorder, predominantly inattentive [...] apply to immediate-relea se amphetamine/dex troamphetamine preparations. 08/09/2024 Attention-defici t hyperactivity disorder, predominantly inattentive [...] prescription for 4 months and send to [facility] pharmacy. 2. Insomnia: - Patient [...] Recommend patient to consider evaluation by an security screener or ENT specialist for further assessment and management. 03/06/2025 Generalized anxiety disorder (ICD-10 - F41.1) cont fluoxetine 20mg daily - prescribed by pcp alprazolam 0.5mg prn- prescribed by pcp 10/14/2024 Generalized anxiety disorder (ICD-10 - F41.1) cont fluoxetine 20mg daily - prescribed by pcp alprazolam 0.5mg prn- prescribed by pcp 10/14/2024 Major depressive disorder, single episode, in full remission (ICD-10 - F32.5) 06/17/2024 Major depressive disorder, single episode, in full remission (ICD-10 - F32.5) 1. ADHD: - Patient reports consistent use of Adderall XR 20 mg and finds it beneficial. No significant side effects reported. - Plan: Continue Adderall XR 20 mg daily. Refill prescription for 4 months and send to [facility] pharmacy. 2. Insomnia: - Patient [...] Recommend patient to consider evaluation by an security screener or ENT specialist for further assessment and management. 03/06/2025 Major depressive disorder, single episode, in [...] 07/07/2025 01:30:00 PM, [address], [facility], [place], [address], Insurance Providers Payer Name Payer Address Payer Phone Subscriber Number Group Number Insured Name Patient Relationship to Insured Coverage Start Date Coverage End Date [facility] [address] [place] [address] [id number] SHIRA IBRAHIM Self - patient is the [...] underwent preoperative examination and testing at [facility] under the care of Sofi Correia PT and Molly Akers RN. The patient then underwent left knee joint replacement surgery on November 21, 2023, performed by Alcides Mancilla MD at [facility]. Post-surgery, the patient received aftercare and home visits from various healthcare professionals from [facility] and [facility], including Arpita Shepherd PTA, Wever, Hattie BODY STRAIGHTENER, Pilar Sidhu PT, and Sarah Aguiar RN. The patient also had office visits and telephone consultations with Alcides Mancilla MD and Yris Gamino at [facility] for nerve pain and aftercare following the knee surgery. As of the last update on July 16, 2024, the patient was still in contact with Alcides Mancilla MD at [facility] for aftercare following the left knee joint replacement surgery. Surgical History Surgery Date(Month/Year) Other
--- OUTSIDE RECORDS SUMMARY | 2025-06-03 06:44 | XMS_ITS | Clinical Summary ---
Author Organization [facility] Address [address] [place] [address] Phone Care Team Providers Care Clay Miller Name Role Phone Nancy Bassett APRN Primary Care Provider [phone]- [phone] Allergies No known active allergies Medications ALPRAZolam (XANAX) 0.25 MG TabletIndications:A nxiety Take 0.25 mg by mouth as needed for Anxiety. rx [id number] Indications: Feeling Anxious Active atorvastatin (LIPITOR) 40 MG TabletIndications:H yperlipidemia Take 40 mg by mouth daily. [id number] Indications: High Amount of Fats in the Blood Active ondansetron (ZOFRAN) 4 MG TabletIndications:N ausea and Vomiting Take 4 mg by mouth every 8 hours as needed for Nausea - 1st line. rx [id number] Indications: Nausea and Vomiting Active Metoprolol Succinate 50 MG Capsule ER 24 Hour SprinkleIndications :Hypertension Take 50 mg by mouth daily. rx [id number] Indications: High Blood Pressure Disorder Active Amphetamine ER 20 MG Tablet Chewable Extended Release Take 20 mg by mouth daily (with breakfast). RX [id number] Active FLUoxetine (PROzac) 20 MG CapsuleIndications: Depression Take 20 mg by mouth daily. rx [id number] Indications: Depression Active HYDROcodone-acetami nophen (NORCO) 5-325 MG Tablet Take 1 Tablet by mouth every 4 hours as needed for Mild or more severe pain. Take 1 to 2 tabs by mouth every 4 hours as needed for pain RX [id number] Active omeprazole (PriLOSEC) 40 MG CAPSULE DELAYED RELEASEIndications: Symptomatic Gastroesophageal Reflux Disease (Inactive) Take 40 mg by mouth daily. rx [id number] Indications: Gastroesophageal Reflux Disease with Current Symptoms Active apixaban (ELIQUIS) 2.5 MG Tablet Take 2.5 mg by mouth 2 times daily. take 1 tab by mouth twice daiy for 28 doses rx [id number] Active albuterol 108 (90 Base) MCG/ACT Aerosol [...] hours as needed for Muscle spasms. rx [id number] Indications: Muscle Spasm Active traMADol (ULTRAM) 50 MG TabletIndications:P ain Take 50 mg by mouth every 6 hours as needed for Mild or more severe pain. rx [id number] Indications: Pain Active Social History Tobacco Use [...] Plan of Treatment Not on file Insurance [facility] Advance Directives * Full Code (Latest Code Status on File) Date Activated Date Inactivated Comments 12/01/2023 2:01 PM Care Teams Clay Miller Relationship Specialty Start Date End Date Nancy Bassett APRN PCP - General Advanced Practice Nurse 11/22/23
--- OUTSIDE RECORDS SUMMARY | 2025-06-03 06:44 | XMS_ITS | Encounter Summary ---
Author Organization [facility] Address [address] [place] [address] Phone Care Team Providers Care Mechanic Welder Name Role Phone Nancy Bassett APRN Primary Care Provider [phone]- [phone] Reason for Visit * Reason Onset Date Comments Medication Management 12/12/2023 Encounter Details Date Type Department Care Team (Late st Contact Info) Description [facility] [address] [place] [address] Lexy Harrell, RN [place] Medication Management Social [...] No changes, actions required. Patient admitted to [facility] on 12/12/23 for therapy. Medication review completed with [facility] therapist on 12/12/23, Patient is symptomatic with discomfort to arm after fracture with surgical repair Please route response to P Clinical Support Triage or call [facility] [phone] option 4 for a nurse. Response is required within 24 hours to meet regulatory requirements. Thank you documented in this encounter Plan of Treatment Not on file documented as of this encounter Visit Diagnoses Not on filedocumented in this encounter Care Teams Mechanic Welder Relationship Specialty Start Date End Date Nancy Bassett APRN PCP - General Advanced Practice Nurse 11/22/23 documented as of this encounter
--- OUTSIDE RECORDS SUMMARY | 2025-06-03 06:44 | XMS_ITS | Encounter Summary ---
Author Organization [facility] Address [address] [place] [address] Phone Care Team Providers Care Director Biology Name Role Phone Nancy Bassett [place] Primary Care Provider +1- [phone] Reason for Visit * Reason Onset Date Comments Medication Management 12/06/2023 Encounter Details Date Type Department Care Team ([facility] st Contact Info) Description 12/06/2023 Telephone [facility] [address] [place] [address] Lexy Harrell, RN [place] Medication Management Social History Tobacco Use Types Packs/Day Years Used Date Smoking Tobacco: Never Assessed Comments Unknown Sex and Gender Information Value Date Recorded Sex Assigned at Not on file Legal Sex Female 12:31 PM CDT Gender Identity Not on file Sexual Orientation Not on file documented as of this encounter Functional Status * BP Answer Date of Assessment Author 110/78 12/06/2023 1:07 PM CDT Nahum Am ie J, PT * Temp Answer Date of Assessment Author 97.7 12/06/2023 1:07 PM CDT Nahum Am ie J, PT * Pulse Answer Date of Assessment Author 87 12/06/2023 1:07 PM CDT Nahum Am ie J, PT * Resp Answer Date of Assessment Author 17 12/06/2023 1:07 PM CDT Nahum Am ie J, PT * SpO2 Answer Date of Assessment Author 98 12/06/2023 1:07 PM CDT Nahum Am ie J, PT documented as of this encounter Mental Status * BP Answer Entry Date Author 11078 12/06/2023 1:07 PM CDT Nahum Am ie J, PT * Temp Answer Entry Date Author 97.7 12/06/2023 1:07 PM CDT Nahum Am ie J, PT * Pulse Answer Entry Date Author 87 12/06/2023 1:07 PM CDT Terry Sidhu PT * SpO2 Answer Entry Date Author 98 12/06/2023 1:07 PM [facility] Terry Sidhu PT documented in this encounter Plan of Treatment Not on file documented as of this encounter Visit Diagnoses Not on filedocumented in this encounter Care Teams Director Biology Relationship Specialty Start Date End Date Nancy Bassett APRN PCP - General Advanced Practice Nurse 11/22/23 documented as of this encounter
== END 2025-06-03 06:41 | disposition home or self-care (01) ==
PROVIDERS: PCP Nurse Practitioner Adult Health; Visit Provider Nurse Practitioner Adult Health
DX: R16.0 Hepatomegaly, not elsewhere classified (principal)
CPT/HCPCS: 74183; A9577